=== PATIENT | female | born 1935 | race Caucasian/White ===

== ENCOUNTER 2023-07-23 12:14 | Emergency (ER) | payer MEDICARE, OTHER ==
[~2023-07-23] VITALS: Ht 149.9 cm; Wt 64.0 kg
[~2023-07-23 12:14] MED LIST: ACETAMINOPHEN325 M1 PO; ALBUTEROL SULF8.5 GM INH; AMARYL4 MG PO; ASPIR 8181 MG PO; ASPIR-LOW81 MG PO; CITALOPRAM HBR20 MG PO; COUMADIN2.5 MG PO; DIGOXIN125 MCG PO; DIGOXIN250 MCG PO; GABAPENTIN100 MG PO; GLUCOPHAGE500 MG PO; HYDROCHLOROTHIA25 MG PO; LISINOPRIL10 MG PO; METFORMIN HCL500 MG PO; PANTOPRAZOLE SO40 MG PO; SIMVASTATIN20 MG PO; SPIRIVA18 MCG INH; SYMBICORT 16010.2 GM INH; TRAMADOL HCL50 MG PO; VENTOLIN HFA18 GM INH; WARFARIN SODIU2.5 MG PO; WOMEN'S ONE DA1 EACH PO
[2023-07-23] MEDS ORDERED: METOPROLOL SUC100 MG PO (12:36)
[2023-07-23] MEDS ORDERED: ALBUTEROL2.5 MG/3 M INH (12:36)
[2023-07-23] MEDS ORDERED: PANTOPRAZOLE SO40 MG PO (12:39)
[2023-07-23] MEDS ORDERED: ATORVASTATIN CA20 MG PO (12:39)
[2023-07-23 13:11] LABS: INFLUENZA B NAA NEGATIVE (NEGATIVE); RESPIRATORY SYNCYTIAL VIR NAA POSITIVE (NEGATIVE)
[2023-07-23] MEDS ORDERED: PREDNISONE20 MG PO (14:31)
[2023-07-23] MEDS ORDERED: CEFDINIR300 MG PO (14:31)
[2023-07-23 14:47] VITALS: BP 143/70
[2023-07-27] MEDS ORDERED: SPIRIVA18 MCG INH (08:51)
== END 2023-07-23 14:47 | disposition home or self-care (01) ==
LOC: ED 12:14
PROVIDERS: Emergency Medicine
DX: J12.1 Respiratory syncytial virus pneumonia (principal); J44.9 Chronic obstructive pulmonary disease, unspecified; E11.9 Type 2 diabetes mellitus without complications; I10 Essential (primary) hypertension; Z87.891 Personal history of nicotine dependence; Z88.0 Allergy status to penicillin; Z88.6 Allergy status to analgesic agent; Z88.8 Allergy status to other drugs, medicaments and biological substances; Z79.899 Other long term (current) drug therapy; Z20.822 Contact with and (suspected) exposure to COVID-19
CPT/HCPCS: 71045; 87502; 99284-25; C9803; J7512; U0002

== ENCOUNTER 2023-07-24 23:02 | Emergency (ER) | payer MEDICARE, OTHER ==
[~2023-07-24] VITALS: Ht 149.9 cm; Wt 62.9 kg
[~2023-07-24 23:02] MED LIST changes: +ALBUTEROL2.5 MG/3 M INH; +ATORVASTATIN CA20 MG PO; +CEFDINIR300 MG PO; +METOPROLOL SUC100 MG PO; +PREDNISONE20 MG PO
--- OUTSIDE RECORDS SUMMARY | 2023-07-24 23:11 | XMS ---
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 EGarett VISIT COUNT (12 MO.) 3 [facility] Lyndsey Armijo (Srvaan Hinson[address] TOTAL 5 NOTE: Visits indicate total known visits. ED/UCC VISIT TRACKING (12 MO.) 07/24/2023 23:03 [facility] [place] TYPE: Emergency COMPLAINT: - SOB 07/23/2023 12:15 [facility] [place] TYPE: Emergency COMPLAINT: - POSSIBLE BRONCHITIS DIAGNOSES: - Allergy status to analgesic agent - Allergy status to other drugs, medicaments and biological substances - Allergy status to penicillin - Chronic obstructive pulmonary disease, unspecified - Contact with and (suspected) exposure to COVID-19 - Cough, unspecified - Essential (primary) hypertension - Other halfway (current) drug therapy - Personal history of nicotine dependence - Respiratory syncytial virus pneumonia - Type 2 diabetes mellitus without complications 04/11/2023 12:59 [facility] [place] (Sravan Hinson) TYPE: Emergency DIAGNOSES: - Constipation, unspecified - Fecal impaction - Permanent atrial fibrillation - constipation 04/01/2023 08:54 [facility] [place] (Sravan Hnison) TYPE: Emergency DIAGNOSES: - Pleural effusion, not elsewhere classified - Pneumonia, unspecified organism - Shortness of breath - Unspecified atrial fibrillation - med refill, sob poss needs breathing treatment - Shortness of Breath 09/17/2022 18:27 [facility] [place] (Sravan Hinson) TYPE: Emergency DIAGNOSES: - Weakness - high vitals - high vitals, post op yesterday - Nausea INPATIENT VISIT TRACKING (12 MO.) [facility]23 08[facility]an [facility] TYPE: Medical Surgical DIAGNOSES: - Achalasia of cardia - Atherosclerotic heart disease of [place] coronary artery without angina pectoris - Chronic obstructive pulmonary disease, unspecified - Dysphagia, unspecified - Hypomagnesemia - Obstructive sleep apnea (adult) (pediatric) - Other dysphagia - Other malaise - Other ventricular tachycardia - Personal history of other endocrine, nutritional and metabolic disease - Pleural effusion, not elsewhere classified - Pneumonia, unspecified organism - Pneumonitis due to inhalation of food and vomit - Shortness of breath - Unspecified asthma, uncomplicated - Unspecified atrial fibrillation [email or web address]
[2023-07-24 23:55] LABS: BASOPHILS 0.4 % (0-2); EOSINOPHILS 0.1 % (0-6); HEMATOCRIT 36.4 % (35.0-50.0); HEMOGLOBIN 11.9 g/dL (12.0-18.0); LYMPHOCYTES 5.4 % (24-44); MCH 28.8 (27-36); MCHC 32.8 g/dl (30-36); MCV 87.8 fl (81-99); MONOCYTES 9.8 % (0-12); NEUTROPHILS 84.3 % (39-80); PLATELET COUNT 121 K/uL (140-440); RBC 4.14 M/ul (4.3-5.7); RDW 14.3 (10.5-15.0)
[2023-07-25 00:15] LABS: ALBUMIN 3.5 g/dL (3.4-5.0); ALBUMIN/GLOBULIN RATIO 0.83 (1.1-2.4); ANION GAP 15.8 (7-21); BILIRUBIN, TOTAL 1.2 ng/dL (0.2-1.0); BUN/CREATININE RATIO 25.22 (6.0-28.6); CREATININE, SERUM 1.11 mg/dL (0.55-1.02); MAGNESIUM 1.8 mg/dL (1.8-2.4); POTASSIUM 4.8 mmol/L (3.5-5.1); PROTEIN, TOTAL 7.7 g/dL (6.4-8.2)
[2023-07-25] MEDS ORDERED: IPRAT-ALBUT 0.5-3 ML INH (01:27)
[2023-07-25 01:56] VITALS: BP 144/89
--- NOTE | 2023-07-25 20:34 | EKG ---
[facility] [address] [facility] [place] [address] Signed Accelerated Junctional rhythm Left axis deviation ST \T\ T wave abnormality, consider lateral ischemia Abnormal ECG When compared with ECG of 17-MAY-2016 09:00, Junctional rhythm has replaced Sinus rhythm Confirmed by Asad Melara MD () on 07/25/2023 8:34:12 PM Electronically Signed By: ASAD MELARA MD 07/25/232033 PATIENT NAME: CONNIE DARNELL Electrocardiogram DATE OF : 39 PHYSICIAN: ASAD MELARA MD REPORT #: [id number] REPORT IS CONFIDENTIAL AND NOT TO BE RELEASED WITHOUT AUTHORIZATION
[2023-07-27] MEDS ORDERED: SPIRIVA18 MCG INH (08:51)
== END 2023-07-25 02:18 | disposition home or self-care (01) ==
LOC: ED 23:02
PROVIDERS: Internal Medicine
DX: J44.1 Chronic obstructive pulmonary disease with (acute) exacerbation (principal); I11.0 Hypertensive heart disease with heart failure; I50.9 Heart failure, unspecified; B97.4 Respiratory syncytial virus as the cause of diseases classified elsewhere; E11.9 Type 2 diabetes mellitus without complications; Z87.891 Personal history of nicotine dependence; Z88.0 Allergy status to penicillin; Z88.6 Allergy status to analgesic agent; Z88.8 Allergy status to other drugs, medicaments and biological substances; Z79.899 Other long term (current) drug therapy
CPT/HCPCS: 36415; 71046; 80053; 83735; 83880; 84484; 85025; 93005; 93010; 94640; 96374; 96375; 99285-25; J1940; J2930

== ENCOUNTER 2023-07-26 11:02 | Inpatient (IN) | payer MEDICARE, OTHER ==
[~2023-07-26] VITALS: Ht 149.9 cm; Wt 58.4 kg
[2023-07-26] VITALS (10 sets, daily range): BP systolic 105–154; BP diastolic 65–103
[~2023-07-26 11:02] MED LIST changes: +IPRAT-ALBUT 0.5-3 ML INH
--- OUTSIDE RECORDS SUMMARY | 2023-07-26 11:10 | XMS ---
PreManage Notification: CONNIE DARNELL Security Molded Candles Wicker Events No recent Security Events currently on file CRITERIA MET - [facility] - 2 Visits in 30 Days CARE PROVIDERS Tami Fuller Medical Auditor/Motion Picture Narrator 06/15/2023-Current PHONE: [phone] KALE HINSON [facility] Current MEDICAL GROUP INTERNAL MEDICINE-SRAVAN PHONE: Unknown Karyn has no Care Guidelines for this patient. EGarett VISIT COUNT (12 MO.) [address] [place] [address] [facility] (Sravan Hinson) TOTAL 6 NOTE: Visits indicate total known visits. ED/UCC VISIT TRACKING (12 MO.) 07/26/2023 11:03 [facility] [place] TYPE: Emergency COMPLAINT: - DIFFICULTY BREATHING 07/24/2023 23:03 [facility] [place] TYPE: Emergency [...] unspecified - Essential (primary) hypertension - Other terminal computer operator (current) drug therapy - Personal history of nicotine dependence - Respiratory syncytial virus pneumonia - Type 2 diabetes mellitus without complications 04/11/2023 12:59 [facility] Sravan PEDERSON ([place]) TYPE: Emergency DIAGNOSES: - Constipation, unspecified - Fecal impaction - Permanent atrial fibrillation - constipation 04/01/2023 08:54 [facility] Sravan PEDERSON ([place]) TYPE: Emergency DIAGNOSES: - Pleural effusion, not elsewhere classified - Pneumonia, unspecified organism - Shortness of breath - Unspecified atrial fibrillation - med refill, sob poss needs breathing treatment - Shortness of Breath 09/17/2022 18:27 [facility] Sravan PEDERSON ([place]) TYPE: Emergency DIAGNOSES: - Weakness - high vitals - high vitals, post op yesterday - Nausea INPATIENT VISIT TRACKING (12 MO.) 04[facility]23 08[facility] TYPE: Medical Surgical DIAGNOSES: - Achalasia of cardia - Atherosclerotic heart disease of [place] coronary artery without angina pectoris - Chronic [...] Unspecified asthma, uncomplicated - Unspecified atrial fibrillation [email or web address]
[2023-07-26] MEDS ORDERED: ALBUTEROL/IPRATROPIUM 3 ML NEB INH PRN (11:15)
[2023-07-26 11:27] LABS: BASOPHILS 0.4 % (0-2); EOSINOPHILS 0.1 % (0-6); HEMATOCRIT 38.9 % (35.0-50.0); HEMOGLOBIN 13.2 g/dL (12.0-18.0); LYMPHOCYTES 3.7 % (24-44); MCH 29.5 (27-36); MCHC 33.8 g/dl (30-36); MCV 87.3 fl (81-99); MONOCYTES 9.5 % (0-12); NEUTROPHILS 86.3 % (39-80); RBC 4.45 M/ul (4.3-5.7); RDW 14.3 (10.5-15.0)
[2023-07-26 11:49] LABS: PLATELET COUNT 135 K/uL (140-440)
[2023-07-26 11:51] LABS: ALBUMIN 3.7 g/dL (3.4-5.0); ALBUMIN/GLOBULIN RATIO 0.88 (1.1-2.4); ANION GAP 14.6 (7-21); BILIRUBIN, TOTAL 1.4 ng/dL (0.2-1.0); BUN/CREATININE RATIO 26.75 (6.0-28.6); CALCIUM 10.3 mg/dL (8.5-10.1); CREATININE, SERUM 1.57 mg/dL (0.55-1.02); MAGNESIUM 1.9 mg/dL (1.8-2.4); POTASSIUM 3.6 mmol/L (3.5-5.1); PROTEIN, TOTAL 7.9 g/dL (6.4-8.2)
[2023-07-26] MEDS ORDERED: dilTIAZem HCL 30 MG TAB PO ONE (13:45)
[2023-07-26] MEDS ORDERED: dilTIAZem HCL 25 MG/5 ML VIAL IV ONE ×2 (13:45→16:00)
[2023-07-26] MEDS ORDERED: LIDOCAINE 2% VISCOUS 6 ML SYR TOP ONE ×2 (14:30→22:30)
[2023-07-26] MEDS ORDERED: ALBUTEROL/IPRATROPIUM 3 ML NEB INH ONE (15:00)
[2023-07-26] MEDS ORDERED: DILTIAZEM HCl/D5W 100 ML IV ONE (16:00)
[2023-07-26] MEDS ORDERED: methylPREDNISolone SOD SUCC 125 MG/2 ML VIAL IV ONE (16:00)
[2023-07-26] MEDS ORDERED: ACETAMINOPHEN 325 MG TAB PO PRN (16:30)
[2023-07-26] MEDS ORDERED: ondansetron HCL 4 MG/2 ML VIAL IV PRN (16:30)
--- NOTE | 2023-07-26 17:10 | NUR ---
PT ARRIVES TO UNIT VIA STRETCHER BY ED RN. NO BELONGINGS PRESENT ON ADMIT. PT AAO - REMAINS IN AFIB RYTHEM WITH RATE OF 106, DILT DRIP ON AT 7.5MG/HR. BP STABLE WITH DRIP. EXPIRATORY WHEEZE THROUGHOUT WITH SOME ACCESSORY USE WITH BREATHING, PT DENIES FEELING SOB. RR 20'S. DINNER ORDERED FOR PT. PURWIK IN PLACE FOR URGENCY/STRESS INC. ORIENTED TO ROOM AND CALL LIGHT IN REACH.
[2023-07-26] MEDS ORDERED: BENZONATATE 100 MG CAP PO PRN (18:15)
[2023-07-26] MEDS ORDERED: DEXTROSE 5% 1,000 ML IV PRN (18:15)
[2023-07-26] MEDS ORDERED: guaiFENesin 600 MG TABCR PO PRN (18:15)
[2023-07-26] MEDS ORDERED: GLUCAGON,HUMAN RECOMBINANT 1 MG/ML VIAL SUB-Q PRN (18:15)
[2023-07-26] MEDS ORDERED: IBLOOD GLUCOSE TEST STRIP 1 EA TEST XX PRN (18:15)
[2023-07-26] MEDS ORDERED: DEXTROSE 50% 50 ML SYR IV PRN ×2 (18:15)
--- NOTE | 2023-07-26 18:15 | NUR ---
PT SITTING ON EDGE OF BED TO EAT - PT REPORTS CHRONIC DYSPHAGIA AND VOMITING AFTER EATING. APPROX 200ML OF DINNER THROWN UP. PT STATES SHE HAS SEEN SPECIALISTS BEFORE WITHOUT RECOMENDATION. CONCERN FOR ASPIRATION. RT AWARE.
[2023-07-26] MEDS ORDERED: ALBUTEROL SULFATE 0.083% 3 ML VIAL INH PRN (18:30)
[2023-07-26] MEDS ORDERED: ALBUTEROL/IPRATROPIUM 3 ML NEB INH SCH (20:00)
[2023-07-26] MEDS ORDERED: BUDESONIDE 0.5 MG/2 ML VIAL INH SCH (20:00)
--- NOTE | 2023-07-26 20:01 | NUR ---
PATIENT UP TO [facility]. ATTENDS HAD MODERATE AMOUNT OF URINE NOTED AND PATIENT VOIDED TO THE C A SMALL AMOUNT. PATIENT TOELRATED TRANSFER WITH MINIMAL ASSIST. PATIENT HAS AUDIBLE COARSE BREATH SOUNDS WITH AN EXP WHEEZE NOTED. RR 20-25 AND Sp02 94-96% ON 2L NC. PATIENT REPORTS CONTINUED SMALL EPISODES OF EMESIS BUT DOES NOT FEEL NAUSEA. PATIENT STATES "IT JUST HAPPENS SOMETIMES WHEN IM COUGHING". PATIENT CONTINUES ON DILT DRIP AT 7.5 MG/HR; HR 90-100 AT REST. IV SITE WNL X2. PATIENT GOWN CHANGED AND ASSISTED PATIENT TO POSITION FOR COMFORT IN THE BED. HOB > 45 DEGREES. CALL LIGHT IN REACH. PATIENT DENIED OTHER CONCERNS AT THIS TIME.
[2023-07-26] MEDS ORDERED: IBLOOD GLUCOSE TEST STRIP 1 EA TEST VI SCH (21:00)
[2023-07-26] MEDS ORDERED: INSULIN LISPRO 100 UNIT/ML ML SUB-Q SCH (21:00)
--- NOTE | 2023-07-26 21:02 | EKG ---
[facility] [address] [facility] [place] [address] Signed Atrial fibrillation with rapid ventricular response Left axis deviation Nonspecific ST and T wave abnormality Abnormal ECG When compared with ECG of 24-JUL-2023 23:27, Atrial fibrillation is now present Confirmed by Asad Melara MD () on 07/26/2023 9:02:24 PM Electronically Signed By: ASAD MELARA MD 07/26/232101 PATIENT NAME: CONNIE DARNELL DYLAN Electrocardiogram DATE OF : 39 PHYSICIAN: ASAD MELARA MD REPORT #: [id number] REPORT IS CONFIDENTIAL AND NOT TO BE RELEASED WITHOUT AUTHORIZATION
--- NOTE | 2023-07-26 21:40 | NUR ---
PATIENT PROVIDED WITH SCHEDULED AND PRN MEDS. PATIENT IS AAOX4. RESTING COMFORTABLY IN THE BED WATCHING TV. TOLERATING 2L NC. PATIENT IS NOT SURE HER STOMACH IS WELL ENOUGH TO USE HER CPAP AT THIS TIME. PATIENT RECEIVED PRN COUGH MEDS AND HAS SOME UPPER AIRWAY CONGESTION. LUNG SOUNDS THROUGHOUT ARE COARSE. PATIENT REQUEST A PRN NEB TREATMENT, RT CALLED. PATIENT REMIANS ON CARDIZEM 7.5; HR 80-90'S AT REST; A.FIB.
--- NOTE | 2023-07-26 22:00 | NUR ---
PATIENT REPORTS SUDDEN ONSET OF SOB. RT CALLED. TITRATED TO 4L NC. Sp02 85-90%; RR 30. PATIENT BREATHING IS LABORED. RT IN ROOM FOR NEB TREATMENT AND PATIENT PLACED ON HOME CPAP. DR.HILBORN SENTHIL MD WILL COME TO SEE THE PATIENT.
[2023-07-26] MEDS ORDERED: FUROSEMIDE 40 MG/4 ML VIAL IV ONE (22:30)
--- NOTE | 2023-07-26 22:56 | NUR ---
PATIENT CONTINUES TO HAVE DIFFICULTY BREATHING. RR 30-35. Sp02 SATS DOWN TO 70% ON HOME CPAP AT 4L BLEED IN. PATIENT TITRATED TO 10L BLEED-IN. RT UPDATED. ACEVES PLACED AND LASIX GIVEN. PATIENT POSITIONED FOR COMFORT WITH HOB ELEVATED. PATIENT IS LETHARGIC AND RESPONDS TO HER NAME BUT NOT QUESTIONS. PATIENT HR 100'S; AFIB. REMAINS ON 7.5 MG/HR CARDIZEM.
[2023-07-27] VITALS (26 sets, daily range): BP systolic 98–169; BP diastolic 41–110
--- NOTE | 2023-07-27 | NUR ---
PATIENT PLACED ON FACILITY BIPAP PER RT. PATIENT TOLERATING WELL. WAKES EASILY TO VOICE. VS STABLE. RR 30-35. Sp02 > 95% ON 30% Fi02. HR CONTROLLED WITH CARDIZEM AT 7.5 MG/HR.
--- NOTE | 2023-07-27 02:00 | NUR ---
PATIENT RESTING IN BED WITH EYES CLOSED. TOLERATING BIPAP WELL. VS STABLE. GOOD URINE OUTPUT. CONTINUED CARDIZEM AT 7.5 MG/HR. IV SITE WNL.
--- NOTE | 2023-07-27 04:00 | NUR ---
PATIENT APPEARS TO BE SLEEPING SOUNDLY. RR 30-35. TOLERATING BIPAP WELL. WAKES EASILY TO VOICE. HR 90-100; AFIB. CARDIZEM CONTINUED AT 7.5 MG/HR.
[2023-07-27] MEDS ORDERED: DILTIAZEM HCl/D5W 100 ML IV ONE (05:23)
[2023-07-27 05:41] LABS: BASOPHILS 0.3 % (0-2); HEMATOCRIT 33.9 % (35.0-50.0); HEMOGLOBIN 11.5 g/dL (12.0-18.0); LYMPHOCYTES 3.4 % (24-44); MCH 29.2 (27-36); MCHC 33.9 g/dl (30-36); MCV 86.1 fl (81-99); MONOCYTES 9.7 % (0-12); NEUTROPHILS 86.6 % (39-80); PLATELET COUNT 115 K/uL (140-440); RBC 3.93 M/ul (4.3-5.7); RDW 14.1 (10.5-15.0)
--- NOTE | 2023-07-27 05:50 | NUR ---
PATIENT IS AGITATED AND CONFUSED. REFUSING LAB DRAWS AND PULLING AT MONITOR LINES. STAFF 1:1 TO MAINTAIN SAFETY. LABS WERE DRAWN WITH 3 STAFF ASSIST. DISCUSSED WITH PATIENT'S DAUGHTER; WHO CONFIRMS PATIENT HAS "MEMORY PROBLEMS" AND CAN BE MEAN WHEN SHE ISN'T FEELING WELL. UPDATE PROVIDED TO PATIENT'S DAUGHTER. DISCUSSED WITH DR. MELARA. PATIENT WILL RECEIVE 1 MG HALDOL AND BE PLACED IN SOFT RESTRAINTS NEEDED FOR MEDICAL MANAGEMENT.
[2023-07-27] MEDS ORDERED: HALOPERIDOL LACTATE 5 MG/ML VIAL IV ONE (06:00)
[2023-07-27] MEDS ORDERED: HALOPERIDOL LACTATE 5 MG/ML VIAL ONE (06:01)
[2023-07-27 06:03] LABS: ALBUMIN 3.2 g/dL (3.4-5.0); ALBUMIN/GLOBULIN RATIO 0.82 (1.1-2.4); ANION GAP 13.2 (7-21); BILIRUBIN, TOTAL 1.2 ng/dL (0.2-1.0); BUN/CREATININE RATIO 27.89 (6.0-28.6); CALCIUM 9.7 mg/dL (8.5-10.1); CREATININE, SERUM 1.47 mg/dL (0.55-1.02); MAGNESIUM 1.8 mg/dL (1.8-2.4); PHOSPHORUS, INORGANIC 4.4 mg/dL (2.5-4.9); POTASSIUM 4.2 mmol/L (3.5-5.1); PROTEIN, TOTAL 7.1 g/dL (6.4-8.2)
--- NOTE | 2023-07-27 06:27 | NUR ---
MULTIPLE ATTEMPTS BY STAFF MADE TO REASON WITH PATIENT AND REORIENT HER. PATIENT IS AGITATED BY STAFF AND REFUSES TO BELEIVE SHE IS IN THE HOSPITAL. PATIENT CONTINUES TO PULL AT MONITOR LINES AND IV SITES WHEN RESTRAINTS ARE NOT IN PLACE. CONTINUE TO MONITOR CLOSELY.
[2023-07-27] MEDS ORDERED: DILTIAZEM HCl/D5W 100 ML IV SCH (06:30)
[2023-07-27] MEDS ORDERED: predniSONE 20 MG TAB PO SCH (08:00)
--- NOTE | 2023-07-27 08:05 | NUR ---
RN IN ROOM TO ASSESS PT - PT WAKES EASILY WHEN SPOKEN TO. REMAINS DISORIENTED TO ALL BUT SELF/NAME. PT FRUSTRATED BY RESTRAINTS, PICKING AT THEM. REMOVED WITH DIRECT OBSERVATION FOR LINE SAFETY. AUDIBLE WHEEZING FROM BEDSIDE, REMAINS ON 2L NC, RR 20. DILT DRIP REMAINS AT 5MG/HR INTO RIGHT AC IV SITE. SITE WNL. HR BELOW 100, BP STABLE. BED ALARM ON.
[2023-07-27] MEDS ORDERED: ENOXAPARIN SODIUM 30 MG/0.3 ML SYR SUB-Q SCH (09:00)
--- NOTE | 2023-07-27 09:12 | NUR ---
PT REPOSISTIONED TO SIDE OF BED TO EAT BREAKFAST. DYSPHAGIA AND EMESIS AFTER 1 BITE OF EGG AND SIPS OF WATER TO SWALLOW ORAL PREDNISONE. PT NOTED TO HAVE EXCESSIVE BURPING AFTER SIPS OF WATER. CONTINUED CONCERN FOR ASPIRATION. FOOD AND DRINK REMOVED UNTIL FURTHER DISCUSSION WITH MD. DILT GTT INCREASED TO 7.5MG/HR , HR ELEVATED TO 110'S WITH ACTIVITY.
[2023-07-27] MEDS ORDERED: FUROSEMIDE 40 MG/4 ML VIAL IV SCH (09:27)
--- NOTE | 2023-07-27 10:58 | NUR ---
PT REMAINS SOB WITH AUDIBLE WHEEZING AT BEDSIDE. IV LASIX ADMINISTERED. RR 29, SP02 98% ON 2L. DILT DRIP TITRATED TO 10MG/HR. RT CALLED FOR NEB TX.
[2023-07-27] MEDS ORDERED: methylPREDNISolone SOD SUCC 40 MG/ML VIAL IV SCH (11:15)
[2023-07-27] MEDS ORDERED: GABAPENTIN100 MG PO (11:36)
[2023-07-27] MEDS ORDERED: ELIQUIS2.5 MG PO (11:37)
--- NOTE | 2023-07-27 11:37 | NUR ---
MED REC COMPLETE
--- NOTE | 2023-07-27 11:44 | NUR ---
FOLLOWING CHART REVIEW AND DISCUSSION WITH NURSING, RECOMMENDATION FOR SWALLOW EVALUATION VIA MODIFIED BARIUM SWALLOW STUDY IS WARRANTED.
--- NOTE | 2023-07-27 11:58 | NUR ---
PATIENT ALERT IN ROOM. PERIODS OF CONFUSION NOTED PER Lisa FAN RN. ASSESSMENT COMPLETED WITH PATIENT. ADAMS, DAUGHTER, CALLED TO CLARIFY INFORMATION. PATIENT LIVES WITH DAUGHTER, ADAMS, IN A SINGLE LEVEL HOME WITH NO STAIRS. PATIENT HAS A WALKER, 2 CANES AND A WHEELCHAIR AT HOME. DAUGHTER STATES SHE PROVIDES TRANSPORTATION FOR PATIENT WHEN NEEDED. DAUGHTER ASSISTS WITH MEAL PREP, HISTORY FACULTY MEMBER, ETC. ADAMS DENIES ANY FINANCIAL HARDSHIP. STATES SHE FEELS SHE IS ABLE TO CONTINUE CARING FOR PATIENT WITHOUT DIFFICULTY. WOULD LIKE ASSISTANCE TO GET SHOWER CHAIR. INFORMED HER THEY MAY BE AVAILABLE AT [facility], [facility]. DISCUSSED INSURANCE COVERAGE OF EQUIPMENT DOES NOT INCLUDE SHOWER CHAIRS. VERBALIZES UNDERSTANDING. DENIES NEEDS. INSTRUCTED IF NEEDS ARISE, PLEASE NOTIFY STAFF.
[2023-07-27] MEDS ORDERED: PHARMACY RENAL DOSE ADJUSTMENT 1 DOSE MISC PO SCH (12:00)
[2023-07-27] MEDS ORDERED: CEFTRIAXONE/SODIUM CHLORIDE 2 GM/100 ML PIGGYBACK IV SCH (12:16)
--- NOTE | 2023-07-27 12:30 | NUR ---
PTS WORK OF BREATHING NOTED TO BE INCREASING. LUNG SOUNDS TIGHTER THROUGHOUT, RR VARIABLE AND 02 DEMAND NOT INCREASING TO SUSTAIN RATES. HR INCREASING WELL, DILT DRIP INCREASED TO 12.5MG/HR. RT NOTIFIED, PLACED ON BIPAP. URINE OUTPUT POST LASIX DOSE 40ML OF TEA COLORED URINE FROM YOLA CATH. UPDATED.
[2023-07-27] MEDS ORDERED: SODIUM CHLORIDE 0.9% 1,000 ML IV SCH (13:15)
--- NOTE | 2023-07-27 13:23 | NUR ---
PT RESTING WITH DECREASED WORK OF BREATHING WITH BIPAP ON - 250ML NS BOLUS STARTED.
--- NOTE | 2023-07-27 13:42 | NUR ---
UR NOTE MCG ATRIAL FIBRILLATION (ISC) 07/26/23 MET CLINICAL INDICATIONS FOR ADMISSION TO INPATIENT CARE GL DAY 1
--- NOTE | 2023-07-27 14:15 | NUR ---
ECHO IN PROGRESS
--- NOTE | 2023-07-27 14:52 | NUR ---
PATIENT AWAKE IN BED, VITALS CHARTED. PATIENT WORK OF BREATHING HAS INCREASED, RN NOTIFIED.
--- NOTE | 2023-07-27 15:45 | NUR ---
PT BACK TO ROOM - VOMITING BARIUM CONTENTS. ASSISTED WITH SUCTION - PT STATES SHE IS "TOO TIRED TO COUGH" AND "MY THROAT JUST WONT STAY OPEN". RR REMAINS ELEVATED IN 30'S WITH AUDIBLE WHEEZING AND INCREASED WORK OF BREATHING. PT APPEARS FATIGUED FROM WORK OF BREATHING. MD AT BEDSIDE TO TALK TO DAUGHTER. PT STATES SHE WISHES TO REMAIN FULL CODE AND INTUABTION IF NECESSARY. ORAL SUCTION AND NEB TX ADMINISTERED BY RT.
--- NOTE | 2023-07-27 15:45 | NUR ---
PT OFF FLOOR TO IMAGING FOR CXR AND MODIFIED BARIUM STUDY WITH THIS RN - STUDY COMPLETED WITH CONSIDERABLE STRAIN ON PT ENERGY - WORK OF BREATHING INCREASING , RR 30'S, 02 DEMAND NOT INCREASING REMAINS ON 2L NC.
--- NOTE | 2023-07-27 16:15 | NUR ---
PT PLACED ON BIPAP AFTER ORAL SUCTIONING AND NEB TX - PT WITHOUT VOMITING EPISODES FOR APPROX 20 MIN, NO LONGER SPITTING UP BARIUM. RISKS RELATED TO BIPAP AT THIS TIME DISCUSSED AT LENGTH WITH RT AND MD - PT NEEDING REST FROM WORK OF BREATHING AT THIS TIME. RN AT BEDSIDE.
--- NOTE | 2023-07-27 16:35 | NUR ---
NOTIFIED OF CURRENT DILT RATE
--- NOTE | 2023-07-27 17:16 | NUR ---
PT RESTING IN BED ON BIPAP WITH IMPROVED RR OF 20 - APPEARS COMFORTABLE. HOB AT 45 DEGREES. GTT UP TO 20MG/HR AND HR REMAINS ELEVATED AT 110'S. SECOND 250ML BOLUS COMPLETE.
--- NOTE | 2023-07-27 17:18 | NUR ---
RN REMAINS AT BEDSIDE.
--- NOTE | 2023-07-27 19:45 | NUR ---
SHIFT REPORT RECEIVED. PATIENT RESTING IN BED WITH BIPAP IN PLACE. ASSISTED PATIENT TO REPOSITION BIPAP MASK FOR COMFORT. PATIENT'S FAMILY AT BEDSIDE. PATIENT VS STABLE. RT IN FOR NEB TREATMENT AND BIPAP CHECK. FAMILY AND PATIENT DENIED NEEDS.
--- NOTE | 2023-07-27 20:15 | NUR ---
PATIENT OFF BIPAP TO 2L NC. PATIENT IS AAOX4. ORAL CARE DONE. PATIENT VISITING WITH HER FAMILY. PATIENT'S BREATHING IS SLIGHTLY LABORED, LUNG SOUNDS ARE COARSE AND TIGHT. PATIENT REPORTS FEELING SOB AND "TIRED OF BREATHING". PATIENT PLACED BACK ON BIPAP AFTER ABOUT 15 MINS. PATIENT REPOSITIONED IN BED. HOB ELEVATED. ACEVES CARE DONE. IV SITES WNL X2. CARDIZEM TITRATED FROM 20 MG/HR TO 10 MG/HR. HR 95-110; AFIB. PATIENT DENIED FEELING NAUSEOUS. INSTRUCTIONS PROVIDED TO PATIENT FOR REMOVING MASK, PATIENT DEMONSTRATED THAT SHE COULD UNCLIP AND REMOVE MASK. FAMILY REMAINS AT BEDSIDE. CALL LIGHT IN REACH.
--- NOTE | 2023-07-27 22:15 | NUR ---
ACCU CHECK DONE, SSI PER ORDER. PATIENT WAKES EASILY TO VOICE. RASS -1. PATIENT DENIED NEEDS OR CONCERNS. VS STABLE. TOLERATING BIPAP.
[2023-07-28] VITALS (20 sets, daily range): BP systolic 93–160; BP diastolic 45–115
--- NOTE | 2023-07-28 00:10 | NUR ---
PATIENT PULLING AT MASK AND REPORTS BEING UNCOMFORTABLE TO HER DAUGHTER. PATIENT TAKEN OFF BIPAP AND PLACED ON 2L NC. PATIENT REPOSITIONED IN BED. IV SITE IN RIGHT AC DC'd DUE TO LEAKING. PATIENT APPEARS CONFUSED BUT DOES NOT ANSWER QUESTIONS. PATIENT IS CALM AND ALLOWS FOR CARES TO BE DONE. PATIENT PLACED BACK ON BIPAP AND RT IN ROOM FOR NEB TREATMENT. FAMILY AT BEDSIDE.
--- NOTE | 2023-07-28 00:27 | NUR ---
PATIENT CONTINUES TO PULL AT HER MASK OCCATIONALLY. STAFF AND PATIENT'S DAUGHTER ENCOURAGE PATIENT TO REST. HR 110-120; CARDIZEM AT 10 MG/HR.
--- NOTE | 2023-07-28 02:15 | NUR ---
PATIENT HAS BEEN RESTING ON BIPAP AND APPEARS COMFORTABLE. EYES CLOSED. VS STABLE.
--- NOTE | 2023-07-28 04:44 | NUR ---
PATIENT REMOVED HER BIPAP MASK. REQUESTED A BREAK FROM IT. 2L NC IN PLACE. PATIENT COUGHING. ASSISTED PATIENT IN ORAL SUCTION OF THICK SECREATIONS. PATIENT IS ORIENTED TO SELF AND HER DAUGHTER, EASILY REORIENTED TO SURROUNDINGS. PATIENT BREATHING IS LABORED. RR 30'S. DAUGHTER AT BEDSIDE. PATIENT REPOSITIONED IN BED. HOB ELEVATED.
--- NOTE | 2023-07-28 05:20 | NUR ---
PATIENT REPORTING INCREASE SOB. PATIENT ON BIPAP. HAVING THICK SPUTUM PRODUCTION, ABLE TO CLEAR WITH SOME ASSIST REMOVING MASK. RT CALLED FOR NEB TREATMENT. PATIENT TIGHT THORUGHOUT. Sp02 >90% ON 30% Fi02. HR 115-130; CARDIZEM INCREASED TO 20 MG/HR.
[2023-07-28 05:45] LABS: BASOPHILS 0.2 % (0-2); HEMATOCRIT 36.8 % (35.0-50.0); HEMOGLOBIN 12.3 g/dL (12.0-18.0); LYMPHOCYTES 3.7 % (24-44); MCH 29.3 (27-36); MCHC 33.5 g/dl (30-36); MCV 87.7 fl (81-99); MONOCYTES 4.8 % (0-12); NEUTROPHILS 91.3 % (39-80); PLATELET COUNT 151 K/uL (140-440); RDW 14.2 (10.5-15.0)
[2023-07-28 06:07] LABS: ALBUMIN 3.6 g/dL (3.4-5.0); ALBUMIN/GLOBULIN RATIO 0.84 (1.1-2.4); ANION GAP 13.4 (7-21); BILIRUBIN, TOTAL 0.9 ng/dL (0.2-1.0); BUN/CREATININE RATIO 26.9 (6.0-28.6); CREATININE, SERUM 1.97 mg/dL (0.55-1.02); POTASSIUM 3.4 mmol/L (3.5-5.1); PROTEIN, TOTAL 7.9 g/dL (6.4-8.2)
--- NOTE | 2023-07-28 06:31 | NUR ---
UPDATE PROVIDED TO . ORDERS RECEIVED FOR IV FLUIDS TO RESTART. MORPHINE ONCE FOR SOB. CHANGING SCHEDULED NEBS TO ZOPENEX DUE TO INCREASED HR. SEE EMAR FOR ORDERS.
[2023-07-28] MEDS ORDERED: SODIUM CHLORIDE 0.9% 1,000 ML IV SCH (06:45)
[2023-07-28] MEDS ORDERED: MORPHINE SULFATE 4 MG/ML VIAL IV ONE (06:45)
[2023-07-28] MEDS ORDERED: levalbuterol HCL 1.25 MG/0.5 ML VIAL INH PRN (06:45)
--- NOTE | 2023-07-28 07:28 | NUR ---
PATIENT APPEARS CALM AND MORE CONTENT IN BED. BIPAP IN PLACE. RR DOWN TO 22 FROM THE 35-40'S. Sp02 99% ON 30% Fi02. HR 95-110. DAUGHTER AT BEDSIDE.
[2023-07-28] MEDS ORDERED: levalbuterol HCL 1.25 MG/0.5 ML VIAL INH SCH (08:00)
[2023-07-28] MEDS ORDERED: IPRATROPIUM BROMIDE 2.5 ML VIAL INH SCH (08:00)
--- NOTE | 2023-07-28 08:00 | NUR ---
PT RESTING IN BED ON BIPAP, AWAKE. DENIES NEEDS AT THIS TIME. DILT DRIP REMAINS AT 20MG/HR.
[2023-07-28] MEDS ORDERED: POTASSIUM CHLORIDE 40 MEQ,LIDOCAINE HCL 1% 40 MG in DEXTROSE 5% 500 ML IV ONE (08:15)
[2023-07-28] MEDS ORDERED: METOPROLOL TARTRATE 5 MG/5 ML VIAL IV SCH (08:15)
--- NOTE | 2023-07-28 09:25 | NUR ---
PT PLACED BACK ON BIPAP AFTER 30 MIN BREAK TO PREFORM ORAL CARE, BED BATH AND LINEN CHANGE. PT MAINTAINS SP02 ON 2L NC BUT RR INCREASES TO 30'S AFTER 30 MINS OFF. PT ORIENTED X3. DAUGHTER UPDATED ON POC.
[2023-07-28] MEDS ORDERED: MORPHINE SULFATE 4 MG/ML VIAL IV PRN (09:30)
--- NOTE | 2023-07-28 10:30 | NUR ---
PT RESTING IN BED WITH HOB 40 DEGREES, BIPAP IN PLACE. RR 15, HR DECREASING TO SUSTAINED RATES IN 80-90S. WORK OF BREATHING AND ACCESSORY USE IMPROVED WHEN ON BIPAP.
--- NOTE | 2023-07-28 11:32 | NUR ---
STOPPED BY PATIENT'S ROOM TO DISCUSS TO PATIENT'S DC PLAN. PATIENT IS GETTING A NEB TREATMENT. CASE MANGER WILL RETURN AFTER TREATMENT.
--- NOTE | 2023-07-28 12:42 | NUR ---
PT RESTING IN BED IN HIGH HOB POSISTION WITH 2LNC IN PLACE. PT TAKEN OFF BIPAP PER REQUEST. INCREASED COUGHING WITH SOME PRODUCTION. HR REMAINS UNDER 100BPM WITH DILT DRIP AT 10MG/HR AFTER LOPRESSOR DOSE.
--- NOTE | 2023-07-28 13:55 | NUR ---
1MG IV ATIVAN ADMINISTERED FOR INCREASING FEELING OF SOB WITH BIPAP ON - PT BECOMING INCREASINGLY INTOLERABLE OF BIPAP, RESTLESS IN BED, BUT UNABLE TO SUSTAIN WORK OF BREATHING WITHOUT BIPAP. UPDATED ON POOR URINE OUTPUT - ORDER RECEIVED AND ENTERED FOR INCREASE IVF TO 100ML/HR
--- NOTE | 2023-07-28 15:15 | NUR ---
IN ROOM ROUNDING - POC DISCUSSED. ALL QUESTIONS ANSWERED. PT REMAINS ON BIPAP PRIMARILY WITH SMALL BREAKS FOR ORAL CARE. PT STATES SOB DID NOT IMPROVE WITH IV MORPHINE. DILT DRIP REMAINS AT 10MG/HR - HR 80'S-90'S. TIGHT WHEEZE THROUGHOUT NOT IMPROVED. DAUGHTER UPDATED ON POC, STATES UNDERSTANDING.
--- NOTE | 2023-07-28 16:28 | NUR ---
ST treatment withheld due to patient's dependence on bipap and inability to tolerate feeding at this time. Discussed with NSG and is in agreement.
[2023-07-28 16:43] LABS: ANION GAP 14.1 (7-21); BUN/CREATININE RATIO 27.48 (6.0-28.6); CALCIUM 9.7 mg/dL (8.5-10.1); CREATININE, SERUM 2.11 mg/dL (0.55-1.02); POTASSIUM 4.1 mmol/L (3.5-5.1)
[2023-07-28] MEDS ORDERED: SODIUM CHLORIDE 0.9% 500 ML IV PRN (17:00)
--- NOTE | 2023-07-28 17:00 | NUR ---
MD NOTIFIED OF CONTINUED LOW URINE OUTPUT - STAT BMP ORDERED. RESULTS CALLED TO MD - ORDER RECEIVED FOR 500ML BOLUS ONCE. STARTED.
--- NOTE | 2023-07-28 18:38 | NUR ---
NS BOLUS COMPLETE. URINE OUTPUT 75ML, REMAINS TEA COLORED CONCENTRATION. PT PLACED BACK ON BIPAP FOR REST. REPOSISTIONED IN BED. MINIMAL CHANGE IN LUNG SOUNDS AND WOB.
[2023-07-28] MEDS ORDERED: INSULIN LISPRO 100 UNIT/ML ML SUB-Q SCH (20:00)
[2023-07-28] MEDS ORDERED: IBLOOD GLUCOSE TEST STRIP 1 EA TEST VI SCH (20:00)
--- NOTE | 2023-07-28 20:21 | NUR ---
DR HENDERSON ROUNDING ON PT, PLAN DISCUSSED, UPDATED ON CURRENT STATUS, URINE OUTPUT AND VS. ORDER GIVEN TO GIVE ANOTHER 500ML NS BOLUS NOW.
[2023-07-28] MEDS ORDERED: SODIUM CHLORIDE 0.9% 500 ML IV SCH (20:30)
--- NOTE | 2023-07-28 22:00 | NUR ---
URINE OUTPUT HAS INCREASED, 48ML OVER THE LAST 2 HOURS. PT REMAINS IN BED, WEARING BIPAP, SPO2 99-100%, RR 18, HR 90'S AFIB.
--- NOTE | 2023-07-28 22:05 | NUR ---
DR HENDERSON IN UNIT, UPDATED ON URINE OUTPUT, ORDER FOR ANOTHER 500ML NS BOLUS GIVEN, BOLUS STARTED.
[2023-07-29] VITALS (20 sets, daily range): BP systolic 123–168; BP diastolic 75–127
--- NOTE | 2023-07-29 00:59 | NUR ---
PT CONT TO REST WEARING THE BIPAP WITH SPO2 100%, RR 19, URINE OUTPUT HAS BEEN MAINTAINING 20ML/HR SINCE THE LAST BOLUS WAS COMPLETED.
--- NOTE | 2023-07-29 02:44 | NUR ---
IN TO DO BLOOD SUGAR AND LOPRESSOR, PT IS REMOVING BIPAP MASK, STATES "ITS TOO HOT", RT CALLED, TEMP TURNED DOWN ON BIPAP HEATER. PT REPOSIITONED. URINE OUTPUT MAINTAINING.
--- NOTE | 2023-07-29 05:45 | NUR ---
PT PULLING AT BIPAP, BIPAP REMOVED AND PT PLACED ON 3L/NC. SPO2 MAINTAINING AT 100%, RR INCREASED TO 24, PT DOES LOOK A BIT MORE LABORED OFF OF BIPAP.
[2023-07-29 06:15] LABS: BASOPHILS 0.1 % (0-2); HEMATOCRIT 33.7 % (35.0-50.0); HEMOGLOBIN 11.6 g/dL (12.0-18.0); LYMPHOCYTES 4.8 % (24-44); MCH 33.5 (27-36); MCHC 34.4 g/dl (30-36); MCV 97.4 fl (81-99); NEUTROPHILS 87.1 % (39-80); PLATELET COUNT 136 K/uL (140-440); RBC 3.46 M/ul (4.3-5.7); RDW 14.4 (10.5-15.0)
[2023-07-29 06:30] LABS: ANION GAP 14.2 (7-21); BUN/CREATININE RATIO 32.97 (6.0-28.6); CALCIUM 9.3 mg/dL (8.5-10.1); CREATININE, SERUM 1.85 mg/dL (0.55-1.02); POTASSIUM 4.2 mmol/L (3.5-5.1)
--- NOTE | 2023-07-29 06:44 | NUR ---
DR HENDERSON UPDATED ON PT STATUS, NEW ORDER FOR IVF BOLUS, MD IN ROOM TO SEE PT.
[2023-07-29] MEDS ORDERED: SODIUM CHLORIDE 0.9% 500 ML IV SCH (06:45)
--- NOTE | 2023-07-29 09:55 | NUR ---
PER MD IN AM MULTI-DISIPLINARY TEAM MEETING MD ORDERED A CHEST CT D/T CONTINUED SOB AND BIPAP DEPENDENCE. VERIFIED WITH MD THAT PATIENT HAS HAD NO BM SINCE ADMISSION, VOMITING, AND FAILED BARIUM SWALLOW EVAL. PER MD DO A CHEST, ABD, AND PELVIS CT FOR FOLLOW-UP. PATIENT IS NOTED TO HAVE GOOD BOWEL TONES.
--- NOTE | 2023-07-29 10:29 | NUR ---
PATIENT TAKEN DOWN FOR CT SCAN OF CHEST/ABD/PELVIS AROUND 1005. PT TAKEN ON 3 L NC AND TOLERATED THIS WELL. PT HAS AUDIBLE EXP WHEEZING WHEN OFF HOMERO BIPAP, AND INCREASED WORK OF BREATHING. PT WAS ABLE TO STAY OFF THE MASK UNTIL JUST NOW HOWEVER, WHEN SHE ENDORSES SOB AGAIN AND AGREED TO BE BACK ON BIPAP. SP02 IS 100%. WILL CONTINUE TO MONITOR. PT'S DAUGHTER HAS LEFT FOR A WHILE BUT STATES SHEWILL RETURN LATER.
--- NOTE | 2023-07-29 11:28 | NUR ---
DILT GTT NOW ON STANDBY. HR HAS BEEN WELL CONTROLLED, IN THE 80-90s.
--- NOTE | 2023-07-29 12:30 | NUR ---
PATIENT REMAINS ON BIPAP 14/6 AND 30%. PT TOLERATING THIS WELL. PT REMAINS NPO AT THIS TIME. PT HAS HAD A COUPLE OF EPISODES OF COUGHING WITH SPUTUM PRODUCTION, WHICH WAS THICK AND WHITE, AND LOOKS SIMILAR TO THE BARRIUM SWALLOW MATERIAL USED. CT SCAN RESULTS ARE BACK AND IN EHR. PT HAS NOW BEEN OFF DILT GTT SINCE AROUND 1115 AND HR IS MAINTAINING UNDER 100 MOSTLY. ASSESSMENT COMPLETE FOR NOON.
[2023-07-29] MEDS ORDERED: ALBUTEROL SULFATE 0.083% 3 ML VIAL INH PRN (12:45)
[2023-07-29] MEDS ORDERED: METOCLOPRAMIDE HCL 10 MG/2 ML SDV IV SCH (14:00)
--- NOTE | 2023-07-29 14:53 | NUR ---
PATIENT TAKEN OFF BIPAP AND PLACED ON 2 L NC. PT STILL AUDIBLY WHEEZING WHEN OFF BIPAP, BUT STATES SHE IS BREATHING OKAY AND WANTS TO KEEP MASK OFF FOR A WHILE. PT STATES SHE FEELS LIKE SHE HAS HAD THIS WHEEZE FOR A COUPLE OF WEEKS. SP02 IS 98-99%. PT REMAINS IN AFIB, BUT OFF DILT GTT. IV 1400 MEDS GIVEN (SEE EMAR). PT'S DAUGHTER HAS JUST RETURNED AND IS NOW VISITING WITH HER. INSTRUCTED PATIENT TO USE CALL LIGHT WHEN SHE FEELS LIKE SHE NEEDS TO BE PUT BACK ON BIPAP.
[2023-07-29] MEDS ORDERED: ALBUTEROL/IPRATROPIUM 3 ML NEB INH SCH (16:00)
--- NOTE | 2023-07-29 16:41 | NUR ---
PATIENT USES CALL LIGHT AND STATES, "I'M NOT FEELING BETTER YET." PATIENT EXPALINED THAT SHE WAS HOPING TO FEEL BETTER AFTER WEARING THE VAPOTHERM FOR A SHORT TIME, WHICH SHE IS STILL FEELING SHORT OF BREATH. PT WANTING TO WEAR THE BIPAP MASK AGAIN AND THIS WAS PLACED BACK ON HER. PATIENT LASTED ABOUT 45 MINS ON VAPOTHERM AT 30L AND 30%. WILL CONTINUE TO MONITOR.
--- NOTE | 2023-07-29 18:08 | NUR ---
PATIENT WANTING TO USE COMMODE TO TRY AND HAVE A BM. HELPED PATIENT 1 PERSON ASSIST TO BSC. PT TOLERATED WELL. ONLY A SMEAR OF A BM NOTED. PT NOW BACK TO BED BUT WANTING TO SIT ON SIDE OF BED. TRAY TABLE PROVIDED IN FRONT WITH PILLOW, AND PATIENT IS SITTING ACROSS FROM HER DAUGHTER. PT STILL HAVING PRODUCTIVE SOUNDING COUGH BUT NOT ALWAYS ABLE TO EXPECTORATE. PT ON VAPOTHERM 30L 30% FOR ALL OF THIS ACTIVITY. INSTRUCTED PATIENT TO CALL THIS RN WHEN READY TO GET BACK TO BED TO REST.
--- NOTE | 2023-07-29 19:47 | NUR ---
REPORT RECEIVED FROM MICHELE CANTRELL. PT IN BED, WEARING BIPAP. RT IN ROOM TO DO WILFRID IRVING.
--- NOTE | 2023-07-29 21:48 | NUR ---
DR HENDERSON ROUNDING ON PTS, UPDATED ON PT STATUS, WILL GIVE 500ML BOLUS NS.
--- NOTE | 2023-07-29 22:50 | NUR ---
PT HAS BEEN RESTFUL ON BIPAP, SPO2 100%. HR 90-100'S AFIB.
--- NOTE | 2023-07-29 23:45 | NUR ---
PT HAS BEEN RESTING, WEARING BIPAP FOR THE LAST COUPLE OF HOURS.
[2023-07-30] VITALS (24 sets, daily range): BP systolic 105–171; BP diastolic 78–108
--- NOTE | 2023-07-30 02:10 | NUR ---
PT REMOVED HER BIPAP MASK, RN IN TO HELP HER ADJUST IT, PT REPOSITIONED UP IN BED AND WAS SETTLED FOR A COUPLE OF MINUTES. SHE THEN STARTED TEARING MASK OFF AGAIN, STATING "I CANT BREATHE", PT REASSURED, PT VERY ANXIOUS, TRYING TO GET MASK OFF WELL CLIMB OUT OF BED. RT CALLED, PT SWITCHED OVER TO VAPOTHERM. PT WAS ON VAPOTHERM APPROX 10 MINUTES, HER WORK OF BREATHING BECAME VERY LABORED, WITH LOTS OF ACC MUSCLE USE AND AUDIBLE WHEEZING. PT THEN INDICATED THAT SHE WANTED TO PUT THE BIPAP BACK ON SHE WAS FEELING TOO SHORT OF BREATH. DURING THIS TIME SATS REMAINED 99-100%. BIPAP WAS REPLACED. PT WAS STILL SOMEWHAT RESTLESS AND FIDGETING WITH BIPAP, 1 MG IV MORPHINE WAS GIVEN. DAUGHTER WAS AT BEDSIDE, ATTEMPTING TO CALM AND REASSURE MOTHER WELL. PT EVENTUALLY WAS ABLE TO RELAX AND LIE BACK WITH BIPAP ON. RESPIRATIONS STILL LOOKING QUITE LABORED AND RR UP TO 24 NOW.
--- NOTE | 2023-07-30 05:05 | NUR ---
LAB IN TO DRAW BLOOD, PT STAYS SLEEPING FOR THE MOST PART. HR 106, SPO2 100% RR 15 ON BIPAP.
[2023-07-30 05:24] LABS: ANION GAP 15.1 (7-21); BUN/CREATININE RATIO 43.05 (6.0-28.6); CALCIUM 9.2 mg/dL (8.5-10.1); CREATININE, SERUM 1.44 mg/dL (0.55-1.02); POTASSIUM 4.1 mmol/L (3.5-5.1)
[2023-07-30 05:53] LABS: BASOPHILS 0.2 % (0-2); EOSINOPHILS 0.1 % (0-6); HEMATOCRIT 34.9 % (35.0-50.0); HEMOGLOBIN 11.5 g/dL (12.0-18.0); LYMPHOCYTES 5.3 % (24-44); MCH 29.7 (27-36); MCHC 32.9 g/dl (30-36); MCV 90.1 fl (81-99); MONOCYTES 5.6 % (0-12); NEUTROPHILS 88.8 % (39-80); PLATELET COUNT 106 K/uL (140-440); RBC 3.87 M/ul (4.3-5.7); RDW 14.1 (10.5-15.0)
--- NOTE | 2023-07-30 06:53 | NUR ---
DR HENDERSON IN TO SEE PT, ASKS TO HAVE PT SWITCHED OVER FROM BIPAP-PT PLACED ON VAPOTHERM 30L, 30%. SPO2 REMAINS 100%, RR UP TO 18, MILD ACC MUSCLE USE SEEN, HR 100'S AFIB. PT OPENS EYES WITH ACTIVITY THEN BACK TO SLEEP QUICKLY.
[2023-07-30 08:03] LABS: BASE EXCESS, BLOOD GAS -4.3 mmol/L (-2-2); HCO3, BLOOD GAS 21.1 mmol/L (22-26); PCO2, BLOOD GAS 38.8 mmHg (35-45); PH, BLOOD GAS 7.34 (7.35-7.45); PO2, BLOOD GAS 123 mmHg (80-100); TOTAL CO2, BLOOD GAS 22.3
--- NOTE | 2023-07-30 08:04 | NUR ---
RT IN ROOM AND DRAWING ABG FROM LEFT WRIST. PT TOLERATED WELL. PT'S DAUGHTER ADAMS REMAINS IN ROOM WITH PATIENT AND IS TEARFUL THIS AM, AND STATES, "I JSUT HATE TO SEE MY MOM SUFFERING LIKE THIS." PATIENT IS ON VAPOTHERM AT 30L AND 30%. PATIENT HAS AUDIBLE EXP WHEEZING HEARD FROM ANYWHERE IN THE ROOM WITHOUT A STETHOSCOPE. SP02 IS 99-100%. HR CURRENTLY 110s, AFIB. RR 20 AND DOES SEEM LABORED, WITH ACCESSORY MUSCLE USE SEEN SUPRACLAVICULAR AND INTERCOSTAL. AM MEDS TO BE GIVEN.
[2023-07-30 08:06] LABS: O2 SATURATION, BLOOD GAS 99.9 % (95.0-100.0); OXYGEN RECEIVED, BLOOD GAS 30%
[2023-07-30] MEDS ORDERED: LORazepam 2 MG/ML VIAL IV ONE (08:45)
--- NOTE | 2023-07-30 09:56 | NUR ---
PATIENT RESTING AFTER ATIVAN WAS GIVEN. RR NOW 14-15, REMAINS ON VAPOTHERM AT 30L AND 30%. DR. HO IN UNIT TO SEE PATIENT PER DR. HENDERSON REQUEST. HR 100-110 AT THIS TIME.
--- NOTE | 2023-07-30 11:30 | NUR ---
THIS RN ROUNDING ON PT - PT RESTING WITH EYES CLOSED, RR 14 WITH MODERATE TO SEVERE WORK OF BREATHING NOTED. SA02 99% ON VAPOTHERM AT SAME SETTINGS. MD UPDATED FROM DR. HO ON CONVERSATION WITH FAMILY - DAUGHTER WENT HOME TO REST BEFORE MD COULD ROUND AGAIN.
--- NOTE | 2023-07-30 13:04 | NUR ---
DR. HENDERSON IN ROOM TO TALK WITH FAMILY AT THIS TIME.
[2023-07-30] MEDS ORDERED: LORazepam 2 MG/ML VIAL IV PRN (13:30)
--- NOTE | 2023-07-30 14:17 | NUR ---
DR. HENDERSON IN TO SEE PATIENT AND HER FAMILY, WHO HAVE BEEN VISITING PATIENT TODAY. PATIENT'S FAMILY WANTING TO LOOK AT POLST FORM THAT PATIENT HAS FILLED OUT, AND REQUESTING TIME TO REVIEW. AFTER REVIEWING POLST, FAMILY UPDATES THIS RN THAT NO CHANGES ARE TO BE MADE TO POLST, AND THEY WOULD LIKE TO CONTINUE TO COMPLY WITH HER PREVIOUSLY WRITTEN WISHES STATED ON POLST FORM. PATIENT GIVEN BED BATH AND LINEN CHANGED. PT TOLERATED WELL. PT REMAINS ON VAPOTHERM AT 30% AND 26L. SP02 HAS MAINTAINED IN THE HIGHER 90s. WHEN ASKING PATIENT HOW SHE IS FEELING, SHE STATES, "NOT GOOD" AND WHEN ASKING PATIENT IF HE IS EXPERIENCING SHORTNESS OF BREATH SHE STATES, "YES." ASKED PATIENT IF SHE WOULD LIKE TO WEAR BIPAP MASK AGAIN AND SHE STATES "YES", BUT ALSO PATIENT WAS UNAWARE THAT HER GRANDSON WAS IN THE ROOM. SHE THEN OPENS HER EYES MORE AND ACKNOWLEDGES THEM IN THE ROOM. PT PROVIDED WITH HER DENTURES AND IS NOW TRYING TO TALK WITH FAMILY, HOWEVER SHE REMAINS VERY TIRED AND EYES ARE MOSTLY CLOSED. WILL CONTINUE TO MONITOR.
--- NOTE | 2023-07-30 14:18 | NUR ---
PT REQUESTED TO GO BACK ON BIPAP AT THIS TIME. PLACED BACK ON AT FORMER SETTINGS
--- NOTE | 2023-07-30 16:18 | NUR ---
1600 ASSESSMENT COMPLETE. PATIENT TAKEN OFF BIPAP AND CURRENTLY ON ROOM AIR WITH SP02 OF 96%. PATIENT REPOSITIONED TO RIGHT SIDE. DR. HENDERSON COMES BACK IN CCU AND DISCUSSING WITH HIM PATIENT'S HIGHER BLOOD PRESSURES AND SLIGHTLY HIGHER HEART RATES. PER MD, RESTART DILT GTT. LAST BP 167/106.
--- NOTE | 2023-07-30 16:44 | NUR ---
PATIENT STARTED BACK ON DILT GTT AT 1630 AT 5 MG/HR.
--- NOTE | 2023-07-30 18:45 | NUR ---
PATIENT'S FAMILY IN ROOM VISITING WITH HER. PT STILL ON VAPOTHERM AT 30L AND 26%. UPDATE PROVIDED TO FAMILY. PT ON DILT GTT AT 15 MG/HR.
--- NOTE | 2023-07-30 19:30 | NUR ---
REPORT RECEIVED AND CARE ASSUMED FROM TAMIA BAUTISTA. PT DAUGHTER AND OTHER FAMILY AT BEDSIDE. VSS PER CONTINUOUS MONITOR.
--- NOTE | 2023-07-30 19:35 | NUR ---
POST HANDOFF REPORT INFUSION VERIFICATION - DILTIAZEM INFUSING AT 15 MG/HR TO PATENT R FA PIV. NS GTT INFUSING AT 100 ML/HR TO PATENT L HAND PIV.
--- NOTE | 2023-07-30 20:15 | NUR ---
DR HENDERSON IN UNIT TO CHECK ON PT. MD STATED TO GIVE PRN ATIVAN PER ORDER NOW FOR TACHYCARDIA. VERBAL ORDER REPEATED FOR VERIFICATION. MEDICATION GIVEN PER MD ORDER.
--- NOTE | 2023-07-30 20:30 | NUR ---
SHIFT ASSESSMENT COMPLETE. SEE MEDITECH. PT DROWSY, OPENS EYES TO NAME. PT DAUGHTER AT BEDSIDE. PT ACEVES PATENT, DRAINING CLEAR SAUL UO. PT PIV PATENT WITH NS GTT AND DILTIAZEM GTT INFUSING PER ORDERS. PT REPOSITIONED WITH PILLOW SUPPORT. BED IN LOW, LOCKED POSITION. PT FAMILY VERBALIZE UNDERSTANDING TO USE CALL LIGHT WITH NEEDS. VAPOTHERM IN PLACE WITH CURRENT O2 SAT 98%. VSS AND NAD NOTED VIA CONTINUOUS MONITOR AND DIRECT OBS.
--- NOTE | 2023-07-30 22:46 | NUR ---
DR HENDERSON NOTIFIED RE PT STATUS. PT CARDIZEM INCREASED TO 20 MG/HR. PT WORK OF BREATHING INCREASED. HR AND BP INCREASED. DR. HENDERSON EN ROUTE TO SEE PT.
--- NOTE | 2023-07-30 23:02 | NUR ---
DR HENDERSON STATES OK TO PLACE PT ON BIPAP. PT PLACED ON BIPAP. PT LETHARGIC FOLLOWING ATIVAN ADMINISTRATION. PT NOT ANSWERING QUESTIONS. PT ATTEMPTING TO PULL OFF BIPAP. DAUGHTERS AT BEDSIDE STATE THIS IS NORMAL BEHAVIOR DUE TO HER DEMENTIA.
--- NOTE | 2023-07-30 23:25 | NUR ---
DR HENDERSON IN ROOM FOR PT STATUS UPDATE. DR HENDERSON STATES TO CONTINUE DILTIAZEM GTT AT 20 MG/HR, ADD DIGOXIN 125 MCG IV Q DAY WITH FIRST DOSE NOW. DR HENDERSON ADJUSTED BIPAP SETTINGS TO 16/6 26%. PT CONTINUES TO PULL AT BIPAP. RR NOW 18, O2 SAT 100% ON BIPAP, HR 120-137 AFIB ON CARDIZEM GTT, BP 144/98 (110).
[2023-07-30] MEDS ORDERED: DIGOXIN 500 MCG/2 ML AMP IV SCH (23:30)
--- NOTE | 2023-07-30 23:56 | NUR ---
PT DAUGHTER CONCERNED FOR PT. DAUGHTER STATING "I'M TIRED OF SEEING MY MOTHER USED A GUINEA PIG". PT DAUGHTERS ASSURED THAT THE MEDICATIONS GIVEN WERE TO TREAT PT. PT STATES "YOU TELL ME WHAT YOU ARE GIVING HER BUT I DON'T UNDERSTAND". PT DAUGHTER REEDUCATED TO THE NAME AND PURPOSE OF EACH MEDICATION PT IS RECEIVING DURING HOSPITAL STAY. PT DAUGHTER FROM [facility] ARRIVED AT 11PM AND TRYING TO HELP EXPLAIN MEDICATIONS AND SITUATION TO [employer]IMARY NURSES' ASS[employer]ATION EXECUTIVE DIRECTOR DAUGHTER. PT FAMILY DENY FURTHER QUESTIONS AND NEEDS.
[2023-07-31] VITALS (37 sets, daily range): BP systolic 123–166; BP diastolic 61–128
--- NOTE | 2023-07-31 00:46 | NUR ---
SHIFT ASSESSMENT COMPLETE. SEE [facility] FOR DETAILS. PT RESTING ON BED WITH BIPAP IN PLACE. DAUGHTERS AT BEDSIDE. PT PIV PATENT, PT ACEVES PATENT AND DRAINING. BED IN LOW, LOCKED POSITION. VSS AND NAD NOTED VIA CONTINUOUS MONITOR AND DIRECT OBS.
--- NOTE | 2023-07-31 02:20 | NUR ---
PT RESTING IN BED WITH EYES CLOSED. PT OPENS EYES TO TOUCH. DAUGHTER ADAMS, PRIMARY TAX INVESTIGATOR, ROOMING IN. PT DAUGHTER WHO ARRIVED FROM [facility] LEFT HOSPITAL AND STATED SHE WOULD RETURN TOMORROW. PT WORK OF BREATHING APPEARS DECREASED FROM EARLIER IN SHIFT PRIOR TO PLACEMENT OF BIPAP ON PT. PT BED IN LOW, LOCKED POSITION WITH BED ALARM ON FOR PT SAFETY. VSS AND NAD NOTDE VIA CONTINUOUS MONITOR AND DIRECT OBS.
--- NOTE | 2023-07-31 04:15 | NUR ---
SHIFT ASSESSMENT COMPLETE. SEE MEDITECH. PT RESTING IN BED WITH EYES CLOSED. BIPAP IN PLACE. PT CONTINUES TO ATTEMPT TO REMOVE BIPAP INTERMITTENTLY. PT REORIENTED. PT DAUGHTER ADAMS RESTATES THIS IS NORMAL DEMENTIA BEHAVIOR FOR PT. PT PIV PATENT WITH DILTIAZEM GTT INFUSING AND NS MAINTENANCE FLUIDS INFUSING PER ORDERS. PT ACEVES PATENT WITH CLEAR ANBER UO. VSS AND NAD NOTED VIA DIRECT OBS AND CONTINUOUS MONITOR.
[2023-07-31 05:39] LABS: ANION GAP 17.6 (7-21); BUN/CREATININE RATIO 44.53 (6.0-28.6); CALCIUM 9.1 mg/dL (8.5-10.1); CREATININE, SERUM 1.19 mg/dL (0.55-1.02); POTASSIUM 3.6 mmol/L (3.5-5.1)
[2023-07-31 06:01] LABS: BASOPHILS 0.1 % (0-2); HEMATOCRIT 33.7 % (35.0-50.0); HEMOGLOBIN 11.3 g/dL (12.0-18.0); LYMPHOCYTES 2.6 % (24-44); MCH 30.2 (27-36); MCHC 33.5 g/dl (30-36); MCV 90.3 fl (81-99); MONOCYTES 4.7 % (0-12); NEUTROPHILS 92.6 % (39-80); PLATELET COUNT 95 K/uL (140-440); RBC 3.74 M/ul (4.3-5.7); RDW 14.3 (10.5-15.0)
--- NOTE | 2023-07-31 06:08 | CONS ---
[facility] [address], [place] [address] Signed DATE OF CONSULTATION: 07/30/2023 CHIEF COMPLAINT: Esophageal dysphagia. HISTORY OF PRESENT ILLNESS: Guera is an 88-year-old rather debilitated lady, who apparently had a type 2 achalasia in the past. She also is a heavy smoker and has significant COPD. Dr. Nur helped her with open Heller myotomy and heel repair in 2016. Since that time, she has required multiple dilations with Dr. Nur as well as with our Gastroenterology colleagues in [place], [place]. Her last dilation came in the fall with Dr. Donahue requiring dilation not only of her distal esophagus, but she had a stricture in the gastric antrum and the pylorus. Of course, her esophageal dysphagia has been an ongoing issue. However, more recently she has come into the hospital with shortness of breath and increased work of breathing and a cough. She was found to be RSV positive. There was some concern she could have pneumonia. She does have chronic thickening to her bronchi with chronic mucus per the radiologist. She was started on cefdinir and steroids, but ended up and has to be admitted to the ICU under medical service. She has been requiring ongoing care and support. I was asked to see her as a local general surgeon on-call to help with issues of the esophageal dysphagia. She did try a barium swallow which we tried to review and the report was rather minimal. She aspirated during the procedure and coughed up quite a bit of that. There was no mention of a dilated esophagus or the stricture distally. However, the CT scan of the chest, abdomen and pelvis shows the dilated esophagus with the narrowing in the distal esophagus along with some duodenitis in the 1st portion of the duodenum and then some body wall edema and of course her chronic lung issues. Fortunately, her daughter is with her today who happens to be her caregiver. Her had last fall of pulmonary issues. Consequently, her daughter is very familiar with this whole process. 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 PAST SURGICAL HISTORY: Includes the Heller myotomy and heel repair with Dr. Nur in 2016. She has had a cholecystectomy, hysterectomy, bilateral cataract surgery and retinal detachment repair along with multiple upper endoscopies and dilations. SOCIAL HISTORY: She used to smoke a pack and half a day. She does not drink. She was and now is a since last fall. She has two daughters. They live in the house in [place] Electronically Signed By: SEGUNDO HO MD 07/31/23 0608 PATIENT NAME: GUERA DARNELL CONSULTATION DATE OF : 39 REPORT #: [id number] PHYSICIAN: SEGUNDO HO MD PCP: HARJEET TORO REPORT IS CONFIDENTIAL AND NOT TO BE RELEASED WITHOUT AUTHORIZATION [address] [address] Signed [place], of course she no longer drives. Her oldest daughter Hilary is the caregiver and functions as the [id number], although that has not been established formally, her phone number is [phone]. Dr. Harjeet Spangler is her primary care provider at the [facility] in [place], [place]. FAMILY HISTORY: None. REVIEW OF SYSTEMS: We talked at length with Hilary as Guera was sound asleep after a small dose of Ativan. ALLERGIES: Phenergan, penicillins, and ibuprofen. MEDICATIONS: 1. Metoprolol. 2. Ipratropium. 3. Albuterol. 4. Atorvastatin. 5. Protonix. 6. Symbicort. 7. Tylenol. 8. Multivitamin. PHYSICAL EXAMINATION: VITAL SIGNS: Her blood pressure is 156/108, heart rate is 110, respiratory rate is 20, her temperature is 98.5. She is 100% on room air. She is 4 feet 11 inches at 58 kg and a body mass index of 26. GENERAL: Guera is an 88-year-old significantly disabled female, lying supine semi-recumbent in her ICU bed. She has oxygen per nasal cannula. She is a bit sedated with just 0.5 mg Ativan. Currently, she seems to be breathing fairly well. LABORATORY DATA: Her white blood cell count is 5.3, hemoglobin 11.4, neutrophils 88. BUN is up to 62, was 42. Creatinine was 1.57 on admission, it is now 1.44. ABG was unremarkable, the pH 7.34, pCO2 38, bicarb 21, O2 saturation 99% on O2 nasal cannula. Blood sugars are in 150s to 160s. The RSV was positive. RADIOGRAPHIC STUDIES: The barium swallow was not particularly helpful. She did aspirate during the procedure, although some of that contrast did make into the ileum and proximal right colon. The report was rather minimal. CT scan of the chest, abdomen, and pelvis shows the chronically thickened bronchi and some mucus. There is some inflammation to the 1st portion of the duodenum and some body wall edema. Electronically Signed By: SEGUNDO HO MD 07/31/23 0608 PATIENT NAME: GUERA DARNELL CONSULTATION DATE OF : 39 REPORT #: [id number] PHYSICIAN: SEGUNDO HO MD PCP: HARJEET TORO REPORT IS CONFIDENTIAL AND NOT TO BE RELEASED WITHOUT AUTHORIZATION [facility] [address], [place] [address] Signed ASSESSMENT AND PLAN: Guera is an 88-year-old rather significantly disabled female, who has this chronic issue of recurrent distal esophageal stricture after Heller myotomy and heel repair in 2015. It has required multiple dilations. I had a long protracted discussion with the daughter, Hilary. It has been agreed between Guera and the family that she is not a surgical candidate obviously to repair that. At this point, feeding tube will not improve her life nor extend her life. Her main issue is really going to be respiratory. Guera has quite a bit of difficulty ahead of her. Hilary tells me that she and her mom would not want extended protracted care and they would choose comfort care rather than heroic measures. I explained to Hilary we have POLST forms here at the hospital and we are certainly happy to get down into the POLST form and we can go over that with her and the admitting service. Otherwise, there was not much I can add to her from a general surgical standpoint. MD REGINALD Shahid/LOGANL /[id number] cc: MD Dr. Harjeet Shahid Copies: SEGUNDO HO MD ~ Electronically Signed By: SEGUNDO HO MD 07/31/23 0608 PATIENT NAME: GUERA DARNELL CONSULTATION DATE OF : 39 REPORT #: [id number] PHYSICIAN: SEGUNDO HO MD PCP: HARJEET TORO REPORT IS CONFIDENTIAL AND NOT TO BE RELEASED WITHOUT AUTHORIZATION
--- NOTE | 2023-07-31 06:46 | NUR ---
DR HENDERSON IN UNIT FOR PT STATUS UPDATE. GAVE VERBAL ORDER TO INCREASE DAILY DIGOXIN TO 250MCG PO. ORDER REPEATED, ENTERED INTO [employer]s AND READ BACK FOR CONFIRMATION. PT RESTING IN BED WITH BIPAP IN PLACE. YOLA AND JONATHAN'S PATENT. DAUGHTER RESTING AT BEDSIDE. VSS AND NAD NOTED VIA DIRECT OBS AND CONTINUOUS MONITOR.
--- NOTE | 2023-07-31 07:00 | NUR ---
DR CUEVAS IS AT BEDSIDE SPEAKING WITH PT DAUGHTER ADAMS.
--- NOTE | 2023-07-31 07:15 | NUR ---
REPORT GIVEN AND CARE ENDORSED TO TAMIA BAUTISTA. PT DAUGHTER IN ROOM AT BEDSIDE. VSS AND NAD NOTED VIA CONTINUOUS MONITOR.
--- NOTE | 2023-07-31 07:52 | NUR ---
PATIENT RESTING ON BIPAP AT THIS TIME WITH SETTINGS OF 16/6 AND 26%. PATIENT'S DAUGHTER ADAMS REMAINS IN ROOM AND HAS STAYED EVERYNIGHT WITH PATIENT. PATIENT STILL ON DILT GTT AT 20 MG/HR AND NOW RECEIVING IV DAILY DIGOXIN. ACEVES DRAINING YELLOW URINE. LUNG SOUNDS CONTINUE TO HAVE EXP WHEEZING WITH SOME INSP WHEEZING HEARD IN UPPER LOBES THIS AM, AND LOTS OF UPPER AIRWAY WHEEZING NOISES HEARD WELL. SLIGHT EDEMA IN LOWER LEGS NOTED. NS REMAINS AT 100 ML/HR. WILL CONTINUE TO MONITOR.
[2023-07-31] MEDS ORDERED: DIGOXIN 500 MCG/2 ML AMP IV SCH (09:00)
[2023-07-31] MEDS ORDERED: SODIUM CHLORIDE 0.9% INH ONE (09:15)
[2023-07-31] MEDS ORDERED: EPINEPHRINE 2.25% 0.5 ML AMP NEB ONE (09:15)
--- NOTE | 2023-07-31 09:46 | NUR ---
IN TO PATIENT ROOM. MICHELE RN AND COREY RT AT THE BEDSIDE PROVIDING CARES. PATIENT DAUGHTER ADAMS AND GRANDDAUGHTER AT THE BEDSIDE. DISCUSS PATIENT ONGOING PROGRESS, NEED FOR NUTRITION, SYMPTOM MANAGEMENT AND CURRENT POLST FORM. ADVISED THAT CASE MANAGEMENT AND STAFF WOULD LIKE TO HAVE A CARE MEETING WITH FAMILY WHEN AVAILABLE SPECIFICALLY TO DISCUSS FEEDING MEASURES AT THIS TIME. ADAMS STATES THAT HER SISTER ROSELYN SHOULD BE IN TO VISIT AT SOME TIME TODAY. ADVISED FAMILY AND STAFF TO CONTACT CASE MANAGEMENT WHEN READY. PATIENT DAUGHTER STATES THEY HAVE RECENTLY MOVED TO [place] FROM [place]. PATIENT HAS BEEN LIVING WITH [place] AND DOING WELL PRIOR TO THIS ACUTE VISIT. PATIENT DOES USE A WALKER TO AMBULATE.
--- NOTE | 2023-07-31 10:00 | NUR ---
PATIENT TAKEN OFF BIPAP AROUND 0830 AND PLACED ON VAPOTHERM. AROUND 0845, PATIENT STRUGGLING MORE WITH INCREASED WORK OF BREATHING. RT COMES TO BEDSIDE AND PER VERBAL ORDER FROM DOMINGO WU TO TRY RACEMIC EPI DOSE NEB. THIS WAS GIVEN PER RT. PATIENT ALSO NOW RECEIVING COOL AIR MIST THROUGH NEB MASK, AND REMAINS ON VAPOTHERM. HR IS ELEVATED, AND WAS BEFORE THE RACEMIC EPI DOSE WAS GIVEN. IT WAS NOTED THAT THERE WERE SLIGHTLY LESS WHEEZES HEARD AFTER THE RACEMIC EPI DOSE WAS GIVEN. VAPOTHERM IS NOW AT 40L AND 40%. NOTABLY, SP02 IS STILL IN THE UPPER 90s. PT'S DAUGHTER AND GRANDCHILDREN ARE IN ROOM. KO FROM CASE MANAGEMENT IN ROOM TO DISCUSS BRIEFLY AND STATES SHE WILL RETURN MORE FAMILY ARRIVES TO FURTHER DISCUSS GOALS OF CARE. IV IN RIGHT FOREARM INFILTRATED AND NEW IV PLACED IN RIGHT AC WHERE DILT GTT IS NOW INFUSING. PT WILL LIKELY NEED MORE STABLE IV PLACEMENT MOVING FORWARD. LOVENOX HELD THIS AM DUE TO PLATELETS DECREASING EACH DAY AND DR. HENDERSON NOTIFIED OF THIS. WILL CONTINUE TO MONITOR CLOSELY.
--- NOTE | 2023-07-31 10:39 | NUR ---
REFERRED BY DR. HENDERSON AND TAMIA BAUTISTA FOR END OF LIFE DISCUSSION. FAMILY STRUGGLING WITH DETERMINING PT WISHES AND ACCEPTABLE INTERVENTIONS. PROVIDED GEOTHERMAL INSTALLER EDUCATION; NORMALIZED EXPEREINCE; LISTENED EMPATHETICLALY; PROVIDED PRAYER QUILT; PROVIDED SUPPORTIVE PRESENCE; PROVIDED PRAYER. WILL FOLLOW UP NEEDED.
[2023-07-31] MEDS ORDERED: EPINEPHRINE 2.25% 0.5 ML AMP INH PRN (10:45)
--- NOTE | 2023-07-31 11:34 | NUR ---
PATIENT RESTING IN BED AT THIS TIME. REPOSITIONED TO LEFT SIDE AND POSITIONED WITH PILLOWS. PT REMAINS ON VAPOTHERM, CURRENTLY AT 40L AND 40% WITH COOL AIR MIST MASK WELL. DILT GTT REMAINS AT 20 MG/HR, IVF AT 100 ML/HR. RR CURRENTLY 16. FAMILY HAD LEFT FOR A WHILE BUT HAS NOW RETURNED TO THE ROOM. ACEVES DRAINING CLEAR YELLOW URINE.
--- NOTE | 2023-07-31 14:44 | NUR ---
PICC INSERTION NOTE: ASKED BY DR. HENDERSON TO EVALUATE PATIENT FOR POTENTIAL PICC LINE PLACEMENT. PATIENT HAS BEEN IN CCU FOR SEVERAL DAYS AND HAS BEEN NPO, AND IS NOW IN NEED OF A CENTRAL LINE TO MANAGE ALL MEDICATIONS WELL FOR TPN TO START. AFTER REVIEWING THE CHART, INTERVIEWING THE PATIENT AND THE FAMILY WHO IS PRESENT IN THE ROOM, NO ABSOLUTE CONTRAINDICATIONS WERE IDENTIFIED. PATIENT IS NOT ABLE TO SIGN THE CONSENT FORM HERSELF AT THIS TIME DUE TO WEAKNESS AND RESPIRATORY DISTRESS, BUT DOES GIVE HER VERBAL CONSENT. HER DAUGHTERS GITA AND ADAMS ARE ABLE TO SIGN THE CONSENT FORM AT THIS TIME FOR THEIR MOTHER. PATIENT'S RIGHT ARM IS EVALUATED FIRST USING THE SITE RITE U/S. VEINS IN THE RIGHT ARM WERE NOT FOUND TO BE SUITABLE NOR LARGE ENOUGH TO ACCOMODATE A 4FR CATHETER. THEREFORE THE LEFT ARM WAS THEN EVALUATED. THERE WAS A BASILIC VEIN, A COUPLE OF BRACHIAL, AND A CEPHALIC VEIN IDENTIFIED. BOTH THE BASILIC AND CEPHALIC VEINS WERE ON THE SMALLER SIDE, AND IT WAS ESTIMATED THAT A 4FR WOULD TAKE UP JUST RIGHT AT 45% OR GREATER OF THOSE VEIN DIAMETERS. PATIENT HAD A COUPLE OF BRACHIAL VEINS AND ONE WAS LOCATED THAT WAS FARTHER AWAY FROM THE BRACHIAL ARTERY, WITH A MEASUREMENT OF ONLY TAKING UP 37% OF VEIN DIAMTER USING A 4FR CATHETER. THIS WAS THE VEIN OF CHOICE. PT'S LEFT ARM WAS STERILY PREPPED AND DRAPPED FOLLOWING CDC RECOMMENDATIONS FO STERILE PROCEDURE. IV ACCESS WAS OBTAINED FAIRLY EASILY INTO VEIN WITH DARK, BRISK, NON PULSATILE BLOOD RETURNED. GUIDEWIRE THREADED INTO CATHETER AND INTO VEIN WITHOUT ANY RESISTANCE, FOLLOWED BY THE INTRODUCER, AND THEN THE PICC LINE. [facility] TECHONOLOGY WAS UTILIZED TO WATCH THE CATHETER TIP PROGRESS ACROSS THE CHEST. ONCE IN A SATISFACTORY POSITION, (PATIENT IN AFIB AND THEREFORE NO PEEKED P WAVES,) A STERILE DRESSING WAS PLACED AND A CHEST XRAY WAS TAKEN. PER CHEST XRAY, "LEFT APPROACH PICC LINE WITH THE CATHETER TIP LOCATED IN THE UPPER RIGHT ATRIUM. THIS IS ACCEPTABLE FOR USE." BOTH LUMENS OF PICC ARE FLUSHING WELL AND ASPIRATE BLOOD. EDUCATION MATERIAL LEFT INSIDE PATIENT'S CHART AND PATIENT ENCOURAGED TO ASK ANY QUESTIONS REGARDING PICC LINE AT ANY TIME.
[2023-07-31 15:20] LABS: ALBUMIN 3.3 g/dL (3.4-5.0); ALBUMIN/GLOBULIN RATIO 0.92 (1.1-2.4); ANION GAP 17.4 (7-21); BILIRUBIN, TOTAL 0.8 ng/dL (0.2-1.0); BUN/CREATININE RATIO 36.58 (6.0-28.6); CALCIUM 9.5 mg/dL (8.5-10.1); CHOLESTEROL/HDL RATIO 2.4; CREATININE, SERUM 1.23 mg/dL (0.55-1.02); POTASSIUM 3.4 mmol/L (3.5-5.1); PROTEIN, TOTAL 6.9 g/dL (6.4-8.2)
--- NOTE | 2023-07-31 15:36 | NUR ---
UR NOTE MCG ATRIAL FIBRILLATION (ISC) 07/28/23 VARIANCE GL DAY 2 07/31/23 VARIANCE GL DAY 2
[2023-07-31 15:55] LABS: INR 1.5 (0.80-1.30); PROTIME 17.7 Sec (11.2-14.2)
[2023-07-31 15:56] LABS: PARTIAL THROMBOPLASTIN TIME 24.6 Sec (22.9-41.3)
[2023-07-31] MEDS ORDERED: MULTIVITAMINS 10 ML,ZINC/COPPER/MANGANESE/SELENIUM 1 ML in AA 5% DEXT 20% WITH LYTES 2,... IV SCH (16:00)
[2023-07-31] MEDS ORDERED: FAT EMULSION 20% 500 ML IV SCH (16:00)
[2023-07-31 16:13] LABS: BASOPHILS 0.1 % (0-2); HEMATOCRIT 33.9 % (35.0-50.0); HEMOGLOBIN 11.2 g/dL (12.0-18.0); LYMPHOCYTES 2.3 % (24-44); MCH 29.8 (27-36); MCHC 33.1 g/dl (30-36); MCV 89.9 fl (81-99); MONOCYTES 4.6 % (0-12); PLATELET COUNT 102 K/uL (140-440); RBC 3.77 M/ul (4.3-5.7)
--- NOTE | 2023-07-31 16:33 | NUR ---
PATIENT RESTING AT THIS TIME WITH BIPAP ON, SETTINGS OF 16/6 AND 26. PT APPEARS COMFORTABLE AND RR IS 16. SP02 IS 100%. HREAT RATE IS STILL SLIGHLTY ELEVATED, CURRENTLY 110-115. TPN STARTED AT 1600 WITH LIPIDS WELL.
--- NOTE | 2023-07-31 16:44 | NUR ---
PATIENT NOTED TO BE SITTING UP IN BED. BIPAP MASK REMOVED AND VAPOTHERM PLACED ON 30L AND 30%. PATIENT'S [facility] REMAINS IN ROOM AT THIS TIME.
--- NOTE | 2023-07-31 17:19 | NUR ---
PATIENT RESTING IN BED, VAPOTHERM IN PLACE AND GRANDDAUGHTER AT BEDSIDE. PATIENT REPOSITIONED FOR COMFORT. ORAL CARE DONE AT THIS TIME.. CALL LIGHT IN EASY REACH
--- NOTE | 2023-07-31 17:29 | NUR ---
DR. HENDERSON CALLED AND UPDATED ON PT'S INCREASED WOB AND CRACKLES IN BASES, EDEMA IN LOWER LEGS. ONE TIME ORDER REC'D FOR 20 MG IV LASIX. PT ALSO MORE RESTLESS AT THIS TIME, TRYING TO THROW LEGS OVER THE SIDE OF BED AND NOTABLY EXP WHEEZING IS LOUDER AT THIS TIME. RR ALSO ELEVATED. RT CALLED FOR RACEMIC EPI TREATMENT. PT REMAINS ON VAPOTHERM AT 30L AND 30%. PRN MORPHINE ALSO AVAILABLE AND TO BE GIVEN.
[2023-07-31] MEDS ORDERED: FUROSEMIDE 20 MG/2 ML VIAL IV ONE (17:30)
--- NOTE | 2023-07-31 17:54 | NUR ---
PATIENT PLACED BACK ON BIPAP DUE TO INCREASED SHORTNESS OF BREATH. RR 25-27 AND LABORED, WITH ACCESSORY MUSCLE USE. PT STILL TRYING TO MOVE LEGS TO EDGE OF BED. HR NOT WELL CONTROLLED WITH RATES IN THE 130-150s. 20 MG IV LASIX HAS BEEN GIVEN.
--- NOTE | 2023-07-31 18:07 | NUR ---
PATIENT BACK TO LAYING DOWN AND REPOSITIONED IN BED. RR STILL 25 AT THIS TIME. HR 120-140s. WILL CONTINUE TO MONITOR CLOSELY.
--- NOTE | 2023-07-31 18:25 | NUR ---
PATIENT BACK ON BIPAP DUE TO INCREASED WORK OF BREATHING. PT STILL BREATHING 24-28. MORE DILUTE URINE NOTED IN ACEVES AFTER LASIX WAS GIVEN. GRANDCHILDREN HAVE LEFT FOR THE DAY BUT STATE THEY PLAN TO RETURN LATER. CONTINUE TO MONITOR.
[2023-07-31] MEDS ORDERED: METOPROLOL TARTRATE 5 MG/5 ML VIAL IV ONE (18:45)
[2023-07-31] MEDS ORDERED: POTASSIUM CHLORIDE 20 MEQ/100 ML BAG IV SCH (18:45)
--- NOTE | 2023-07-31 20:24 | NUR ---
ROUNDING IN PATIENT ROOM, THIS RN GAVE UPDATES AND DISCUSSED CONITNUED CARE PLAN, NEW ORDERS PROVIDED. SEE CHART/EMAR.
[2023-07-31] MEDS ORDERED: MORPHINE SULFATE 4 MG/ML VIAL IV PRN (20:30)
--- NOTE | 2023-07-31 20:52 | NUR ---
PATIENT ADMINISTERED MORPHINE 1MG IV PRN AT FOR AIR HUNGER, PATIENT ALSO RESTLESS MORE WITH INCREASE WORK OF BREATHING.
--- NOTE | 2023-07-31 21:10 | NUR ---
Kyaw WANG ROUNDING IN PATIENT ROOM. PATIENT LESS RESTLESS NOW RESP RATE 16/MIN
--- NOTE | 2023-07-31 21:44 | NUR ---
PATIENT NOW ON HIGH FLOW VAPOTHERM 30/30, PATIENT IS TOLERATING WELL AT THIS TIME. RR 16/MIN.
--- NOTE | 2023-07-31 22:04 | NUR ---
AT NURSES STATION AT THIS TIME FOR UPDATE ON PATIENT AND BLOOD SUGAR RECHECK, NEW ORDERS TO MONITOR BLOOD SUGAR EVERY TWO HOURS UNITL BETTER CONTROL. ALSO SHOWED TPN ORDERS THAT INDICATES INSULIN WAS NOT ADDED TO TPN.
[2023-07-31] MEDS ORDERED: INSULIN LISPRO 100 UNIT/ML ML SUB-Q ONE (22:15)
--- NOTE | 2023-07-31 22:34 | NUR ---
PATIENT PLACED ON BIPAP BY R.T. FOR WORK OF BREATHING, PATIENT PULLING MASK OFF, NOT ABLE TO REDIRECT, PATIENT PLACED BACK TO VAPOTHERMA, R.TFelipa CARVAJALY CALLED.
--- NOTE | 2023-07-31 22:51 | NUR ---
[address] HENDERSON TO SEEK PULMONOLGY CONSULT FOR POSSIBLE TRANSFER. 2114 CALL TO [facility] TRANSFER [facility] SPOKE WITH BRIGETTE, PER BRIGETTE ARCOS FULL AND WILL CHECK WITH [facility]. 2118 CALL TO [facility] TRANSFER [facility] SPOKE WITH OBEY, PER OBEY NO AVAILABILITY AT [facility] OR [facility]. 2219 CALL TO [facility]SF[facility] SPOKE WITH AUNDREA. AUNDREA CALLS BACK @ 2231 WITH BOX BENDER TO TALK TO DR HENDERSON.
--- NOTE | 2023-07-31 22:55 | NUR ---
AT NURSES STATION AFTER CONSULTING WITH DRIVER MEDIC, UPDATED NURSES ON PLAN OF CARE FOR BLOOD SUGAR AND VAPOTHERM AND BIPAP. Kyaw WANG ALSO AT NURSES STATION LISTENING AND UPDATED SETTINGS FOR VAPOTHERM AND BIPAP FOR REST OF BREATHING.
[2023-08-01] VITALS (28 sets, daily range): BP systolic 120–157; BP diastolic 52–106
[2023-08-01] MEDS ORDERED: METOPROLOL TARTRATE 5 MG/5 ML VIAL IV SCH
[2023-08-01] MEDS ORDERED: INSULIN LISPRO 100 UNIT/ML ML SUB-Q SCH
[2023-08-01] MEDS ORDERED: IBLOOD GLUCOSE TEST STRIP 1 EA TEST VI SCH
--- NOTE | 2023-08-01 00:49 | NUR ---
PATIENT RESTLESS, NOTED TO BE COUGHING, SHE IS TRYING TO PULL OFF THE BIPAP, THIS RN ASSIST TO REMOVE FOR HER TO COUGH, R.T. CALL TO REQUEST A NEBULIZER TO PERHAPS HELP MOBILIZE SECRECTIONS. KATHLEEN Card IN ROOM FOR PROVIDE ALBUTEROL NEB NOW.
--- NOTE | 2023-08-01 04:18 | NUR ---
IN ROOM FOR CBG, SS INSULIN ADMINISTERED. pt RESTING WITH EYES CLOSED, RR 22. pt DOES NOT OPEN EYES WITH NEEDLE STICK, OR ACCU CHECK. NO SHIFTING IN BED. APPEARS TO BE RESTING COMFORTABLY WITH BIPAP IN PLACE.
--- NOTE | 2023-08-01 04:39 | NUR ---
PATIENT RESTING IN BED RELAXED, ON BIPAP, TOLERATING WELL, 99-100% OXYGEN SATURATION. V/S STABLE. BLOOD SUGAR IS NOW TRENDING DOWN, HEART RATE IS CONTROLLED 80-100 BEATS PER MINUTE.
--- NOTE | 2023-08-01 05:19 | NUR ---
ABG DRAW COMPLETE BY Kyaw WANG AND WALKED TO LAB
[2023-08-01 05:41] LABS: ANION GAP 15.8 (7-21); BUN/CREATININE RATIO 34.69 (6.0-28.6); CALCIUM 9.4 mg/dL (8.5-10.1); CREATININE, SERUM 1.47 mg/dL (0.55-1.02); MAGNESIUM 1.9 mg/dL (1.8-2.4); PHOSPHORUS, INORGANIC 2.3 mg/dL (2.5-4.9); POTASSIUM 3.8 mmol/L (3.5-5.1)
[2023-08-01] MEDS ORDERED: POTASSIUM PHOSPHATE 30 MMOL in DEXTROSE 5% 500 ML IV ONE (07:15)
[2023-08-01 07:46] LABS: BASE EXCESS, BLOOD GAS -4.6 mmol/L (-2-2); HCO3, BLOOD GAS 20.8 mmol/L (22-26); PCO2, BLOOD GAS 38.5 mmHg (35-45); PH, BLOOD GAS 7.34 (7.35-7.45); PO2, BLOOD GAS 123 mmHg (80-100)
[2023-08-01 07:47] LABS: O2 SATURATION, BLOOD GAS 99.9 % (95.0-100.0); OXYGEN RECEIVED, BLOOD GAS 30 L
--- NOTE | 2023-08-01 08:00 | NUR ---
REPORT REC'D AND PLAN OF CARE RESUMES. PATIENT RESTING ON BIPAP WITH 14/6 25% AND TOLERATING WELL. PT'S DAUGHTER IN ROOM, LUIS ALBERTO. PT HAS WELL HR CONTROL, STILL AFIB, HR 80-90s MOSTLY. TPN CONTINUES AT 84 ML/HR. IV POTASSIUM PHOS STARTED. PT TO RECEIVE AM MEDICATIONS. EXP WHEEZING STILL HEARD THROUGHOUT LUNGS. SCDs WHILE PATIENT IS IN BED.
[2023-08-01] MEDS ORDERED: INSULIN GLARGINE-YFGN 100 UNIT/ML ML SUB-Q SCH (09:00)
--- NOTE | 2023-08-01 10:41 | NUR ---
AM MEDS GIVEN. PT TAKEN OFF BIPAP AND ASSESSMENT COMPLETED EARLIER THIS AM. PT PLACED ON VAPOTHERM 40L AND 25% WHEN NOT ON BIPAP FOR ASSISTANCE WITH WORK OF BREATHING. PT STILL MAINTAINING SP02 WELL. PICC LINE WORKING WELL. IV SITE IN LEFT HAND ALSO STILL WORKING AND BEING USED WHEN PATIENT HAS MULTIPLE IV MEDICATIONS. ACTIVE BOWEL SOUNDS REMAIN PRESENT. SKIN IS INTACT, NO SIGNS OF REDNESS OR BREAKDOWN NOTED WHEN PATIENT ROLLED TO SIDE TO SIDE. BACK WASHED, WELL WASH CLOTH PROVIDED FOR AM CARES. MOUTH MOISTENED WITH SPONGE. PT IS STILL HARD TO UNDERSTAND BUT DOES RESPOND TO YES/NO QUESTIONS. WILL CONTINUE TO MONITOR.
--- NOTE | 2023-08-01 11:34 | NUR ---
PATIENT TILTED TOWARDS LEFT SIDE AND POSITIONED WITH PILLOWS. PT REMAINS ON BIPAP WITH THE SAME SETTINGS, 14/6 AND 25%. HR HAS REMAINED WELL CONTROLLED, 80-90s.
--- NOTE | 2023-08-01 11:39 | NUR ---
ROUNDS. PT RECEIVING NURSING CARE. TAMIA BAUTISTA INDICATED PT MORE RESTFUL TODAY. FAMILY NOT PRESENT. PROVIDED PRAYER.
[2023-08-01 12:32] LABS: ANION GAP 11.1 (7-21); BUN/CREATININE RATIO 38.46 (6.0-28.6); CALCIUM 9.3 mg/dL (8.5-10.1); CREATININE, SERUM 1.3 mg/dL (0.55-1.02); POTASSIUM 4.1 mmol/L (3.5-5.1)
--- NOTE | 2023-08-01 13:48 | NUR ---
PATIENT TAKEN OFF BIPAP AND PLACED ON VAPOTHERM AT 40L AND 25%. PATIENT REMAINS DROWSY. DILT GTT TITRATED DOWN TO 12.5 MG/HR, HR STAYING IN THE 70-80s. WILL CONTINUE TO MONITOR.
--- NOTE | 2023-08-01 14:49 | NUR ---
PATIENT TAKEN OFF BIPAP AND NOW BACK ON VAPOTHERM. PRN RACEMIC EPI TREATMENT GIVEN PER RT FOR LOUD EXP UPPER AIRWAY WHEEZING. PT NOW ALSO RECEIVING COOL AIR MIST MASK. NEW IV PLACED IN RIGHT FOREARM AND LEFT HAND IV D/C. PT TOLERATED WELL. PT STILL FAIRLY DROWSY BUT DOES TRY TO SIT SELF UP IN BED. REPOSITIONED TO RIGHT SIDE. WILL CONTINUE TO MONITOR.
[2023-08-01] MEDS ORDERED: SELENIUM INSULIN REGULAR HUMAN IV SCH ×2 (16:00)
[2023-08-01] MEDS ORDERED: COPPER IV SCH ×2 (16:00)
[2023-08-01] MEDS ORDERED: MANGANESE IV SCH ×2 (16:00)
[2023-08-01] MEDS ORDERED: [UNRECOGNIZED DRUG - OTHER] IV SCH ×2 (16:00)
[2023-08-01] MEDS ORDERED: MULTIVITAMINS ZINC IV SCH ×2 (16:00)
--- NOTE | 2023-08-01 16:59 | NUR ---
PATIENT PLACED BACK ON BIPAP AT THIS TIME. PT REMAINS DROWSY BUT WHEN ASKED, "ARE YOU SHORT OF BREATH?" SHE DOES RESPOND WITH A "YES." PATIENT RR IS ELEVATED AT 25, SP02 WAS STILL 98% OFF THE BIPAP BUT INCREASED WORK OF BREATHING WAS EVIDENT.
--- NOTE | 2023-08-01 18:26 | NUR ---
PATIENT TAKEN OFF BIPAP DUE TO PULLING IT OFF. PATIENT NOW ON VAPOTHERM AT 40 L AND 25%. PATIENT MORE RESTLESS NOW. PT'S DAUGHTERS AND GRANDSON ARE NOW IN ROOM.
--- NOTE | 2023-08-01 18:42 | NUR ---
PATIENT'S RINGS WERE REMOVED AND GIVEN TO HER DAUGHTER ADAMS. PATIENT ALLOWED TO SIT AT EDGE OF BED FOR A LITTLE WHILE. LUNGS SOUNDS ARE SOUNDS LESS WHEEZY AT THIS TIME, STILL COARSE THROUGHOUT, BUT SIGNIFICANTLY LESS WHEEZING NOTED. PT REMAINS ON DILT GTT AT 15 MG/HR, TPN AT 84 ML/HR. PT'S TWO DAUGHTERS REMAIN IN ROOM AT THIS TIME. LAST CBG AT 1800 WAS UNDER 200 AND SS INSULIN WAS GIVEN.
--- NOTE | 2023-08-01 19:34 | NUR ---
RECEIVED REPORT FROM DAY SHIFT RN. PATIENT IS RESTING IN BED. FAMILY AT BEDSIDE. NO NEEDS NOTED. CALL LIGHT IN REACH. PATIENT IS ON VAPOTHERM AT THIS TIME.
--- NOTE | 2023-08-01 21:03 | NUR ---
PATIENT REPORSITIONED IN BED. PATIENT IS NOW IN HIGH FOWLERS POSITION. PATIENTS PM MEDS GIVEN PER ORDER. PATIENTS IV INFUSING PER ORDER. PATIENT REMAINS ON VAPOTHERM. RT IN ROOM TO ADMIN NEB. PATIENT ONLY ORIENTED TO SELF. PATIENT BRIEFLY OPENS EYES. ORAL CARE COMPLETED. ACEVES CARE COMPLETED. PATIENTS VITALS AND INTAKE AND OUTPUT RECORDED. SCDS IN PLACE. EDEMA NOTED IN BILAT LOW EXT. PATIENTS LOW EXT ELEVATED ON PILLOWS. PATIENT HAS GEN EDEMA IN HANDS. HANDS ELEVATED ON PILLOWS. PATIENTS DAUGHTER PRESENT AT T BEDSIDE AND DENIES ANY COMMENTS, QUESTIONS OR CONCERNS. PATIENT APPEARS COMFORTABLE AT THIS TIME. PATIENTS CALL LIGHT IN REACH.
--- NOTE | 2023-08-01 22:07 | NUR ---
PATIENT REPOSITIONED IN BED. PATIENT REMAINS ON VAPOTHERM. NO CHANGES TO VAPOTHERM. PATIENTS SCHEDULED MEDS GIVEN PER ORDER. PATIENT APPEARS TO BE RESTING COMFOTABLY. PATIENTS VITALS TAKEN AND RECORDED. INTAKE AND OUTPUT RECORDED. PATIENTS IV INFUSING PER ORDER. PATIENT HAS SCDS IN PLACE. RT IN ROOM AND NO CHANGES MADE TO VAPOTHERM. PATIENTS DAUGHTER ASLEEP ON COUCH.
--- NOTE | 2023-08-01 23:15 | NUR ---
PATIENT IS RESTLESS IN BED. PATIENT REPOSITIONED AND AIR MATTRESS PLACED UNDER PATIENT. PATIENT TOLERATED ACTIVITY WELL. PATIENTS VITALS TAKEN AND RECORDED. INTAKE AND OUTPUT RECORDED. PATIENTS DAUGHTER IS AT THE BEDSIDE. PATIENTS DAUGHTER DENIES ANY NEEDS. CALL LIGHT IN REACH.
--- NOTE | 2023-08-01 23:41 | NUR ---
PATIENT WITH INCREASED RR. FAST SHALLOW BREATHS NOTED. RT IN ROOM. NEB ADMIN BY RT PER ORDER
[2023-08-02] VITALS (37 sets, daily range): BP systolic 130–167; BP diastolic 50–107
--- NOTE | 2023-08-02 00:21 | NUR ---
PATIENT ASSESMENT COMPLETED. MEDS GIVEN PER ORDER. PATIENTS VITALS RECORDED. INTAKE AND OUTPUT RECORDED. PATIENT REPOSITIONED IN BED. SCDS IN USE. ORAL CARE COMPLETED. PATIENT TOLERATED ACTIVITY WELL. PATIENTS IV INFUSING PER ORDER. PATIENTS DAUGHTER ASLEEP ON COUCH. NO DISTRESS NOTED. PATIENT APPEARS COMFORTABLE.
--- NOTE | 2023-08-02 00:57 | NUR ---
PATIENT NOTED TO HAVE INCREASED RR. PATIENT PLACED ON BIPAP. RT IN ROOM. PATIENT APPEARS TO BE RESTING COMFORTABLY.
--- NOTE | 2023-08-02 02:07 | NUR ---
PATIENTS VITALS RECORDED. INTAKE AND OUTPUT RECORDED. PATIENT REPOSITIONED IN BED. PATIENTS SCHEDULED MEDS GIVEN PER ORDER. PATIENTS IV INFUSING PER ORDER. PATIENT REMAINS ON BIPAP. PATIENTS DAUGHTER ASLEEP ON COUCH. CALL LIGHT IN REACH.
[2023-08-02] MEDS ORDERED: FUROSEMIDE 20 MG/2 ML VIAL IV STA (03:21)
[2023-08-02] MEDS ORDERED: FUROSEMIDE 20 MG/2 ML VIAL ONE (03:22)
--- NOTE | 2023-08-02 03:26 | NUR ---
PATIENT HAD NOTED DECREASED OXYGEN TO 20. BIPAP OXYGEN INCREASED TO 100%. RT IN ROOM TO EVAL PATEINT. PATIENT HAS NOTED CRACKLES THROUGHOUT. PLACED CALL TO MD. ONE TIME ORDER FOR IV LASIX RECEIVED. IV LASIX GIVEN PER ORDER. PATIENT RMEAINS ON BIPAP. THIS RN AND RT REMAINS AT BEDSIDE.
--- NOTE | 2023-08-02 03:32 | NUR ---
DR HENDERSON NOTIFIED OF PT RHYTHM CHANGES. STAT LABS ORDERED. RT AND PRIMARY RN IN PT ROOM.
--- NOTE | 2023-08-02 03:34 | NUR ---
LABS DRAWN FROM PICC PER PROTOCOL AND SENT TO LAB. IVS INFUSING PER ORDER.
--- NOTE | 2023-08-02 03:39 | NUR ---
MD AT BEDSIDE. VERBAL ORDER FOR ABG RECEIVED. RT AT BEDSIDE.
[2023-08-02 03:56] LABS: ANION GAP 8.8 (7-21); BUN/CREATININE RATIO 46.77 (6.0-28.6); CALCIUM 9.2 mg/dL (8.5-10.1); CREATININE, SERUM 1.24 mg/dL (0.55-1.02); MAGNESIUM 1.8 mg/dL (1.8-2.4); PHOSPHORUS, INORGANIC 4.3 mg/dL (2.5-4.9); POTASSIUM 4.8 mmol/L (3.5-5.1)
[2023-08-02 03:58] LABS: BASOPHILS 0.1 % (0-2); EOSINOPHILS 0.1 % (0-6); HEMATOCRIT 33.2 % (35.0-50.0); HEMOGLOBIN 11.5 g/dL (12.0-18.0); LYMPHOCYTES 1.7 % (24-44); MCH 34.4 (27-36); MCHC 34.6 g/dl (30-36); MCV 99.5 fl (81-99); MONOCYTES 3.3 % (0-12); NEUTROPHILS 94.8 % (39-80); PLATELET COUNT 100 K/uL (140-440); RBC 3.33 M/ul (4.3-5.7); RDW 14.2 (10.5-15.0)
--- NOTE | 2023-08-02 03:59 | NUR ---
ABG DRAWN FROM RIGHT WRIST. PT TOLERATED WELL. BANDAGED WITH GAUZE AND THEN BANDAID. BLOOD WALKED TO LAB BY KATHLEEN ORTIZ
[2023-08-02 04:00] LABS: BASE EXCESS, BLOOD GAS -3.3 mmol/L (-2-2); HCO3, BLOOD GAS 23.9 mmol/L (22-26); PCO2, BLOOD GAS 51.2 mmHg (35-45); PH, BLOOD GAS 7.28 (7.35-7.45); TOTAL CO2, BLOOD GAS 25.5
[2023-08-02 04:01] LABS: O2 SATURATION, BLOOD GAS 99.8 % (95.0-100.0)
--- NOTE | 2023-08-02 04:03 | NUR ---
CHEST XRAY COMPLETED
[2023-08-02] MEDS ORDERED: SODIUM BICARBONATE 50 MEQ/50 ML SYR IV SCH (04:15)
--- NOTE | 2023-08-02 04:24 | NUR ---
PATIENT GIVEN A ONE TIME DOSE OF BICARB PER ORDER-SEE EMAR. PATIENT IS RESTING IN BED. PATIENT APPEARS TO BE RESTING COMFORTBLY. PATIENT REMAINS ON BIPAP. MD REMAINS ON FLOOR. ALL LABS REVIEWED BY MD. PATIENTS DAUGHTER UPDATED ON PLAN OF CARE. ALL QUESTIONS ANSWERED.
[2023-08-02] MEDS ORDERED: MAGNESIUM SULFATE 1 GM in DEXTROSE 5% 100 ML IV ONE (04:45)
[2023-08-02] MEDS ORDERED: MAGNESIUM SULFATE 2 GM/50 ML BAG IV ONE (05:00)
--- NOTE | 2023-08-02 05:28 | NUR ---
RT AT BEDSIDE TO DRAW ABG. RT WALKED ABG TO LAB
[2023-08-02 05:31] LABS: HCO3, BLOOD GAS 25.9 mmol/L (22-26); O2 SATURATION, BLOOD GAS 99.7 % (95.0-100.0); PCO2, BLOOD GAS 41.6 mmHg (35-45); PH, BLOOD GAS 7.4 (7.35-7.45); TOTAL CO2, BLOOD GAS 27.2
--- NOTE | 2023-08-02 05:55 | NUR ---
MD ON FLOOR AND REVEIWED ABG RESULTS. NO NEW ORDERS AT THIS TIME. PATIENT IS RESTING IN BED WITH BIPAP IN PLACE, SETTINGS FOLLOWS 14/6 FIO2 25%. PATIENT APPEARS TO BE COMFORTABLE. PATIENT ASSEMSENT COMPLETED. PATIENTS DAUGHTER IS ASLEEP ON THE COUCH.
--- NOTE | 2023-08-02 07:15 | NUR ---
report from Adrianne fox, pt on bipap at this time, with daughter in room. resp 26, o2 100% setting 14/6 bipap and 25% oxygen.
--- NOTE | 2023-08-02 07:59 | NUR ---
Pt sleeping with RN in room. Per RN pt had an event last night and was close to being intubated. No change in CM plan at this time. Pt to remain in CCU.
--- NOTE | 2023-08-02 08:06 | NUR ---
rn and student rn tom in to assume care - introduced to [facility] larry mcfarland provided and discussed plan of care. iv lines checked with nitish rdz rn, and bipap settings verified. bs= 224, temp 97.6 axillary. call light in reach - pt with bipap on, very somulent, awakens to stimuli, continues to sleep through cares. rt in room.
[2023-08-02] MEDS ORDERED: INSULIN GLARGINE-YFGN 100 UNIT/ML ML SUB-Q SCH (09:00)
--- NOTE | 2023-08-02 09:15 | NUR ---
dr ashley here with pt, dtg and rn. no changes to plan.
--- NOTE | 2023-08-02 09:18 | NUR ---
rn called areli rt - no mucomyst started yet. and dr ashley asked about them. areli will confirm and order.
[2023-08-02 10:45] LABS: PREALBUMIN 18.7 mg/dL (20.0-40.0)
--- NOTE | 2023-08-02 11:00 | NUR ---
bed bath and linen change complete, all skin wnl intact, akers care done. pt moves around in bed, rom done with arms and legs, assisted pt to sit up in bed but she is not steady enough to hold her own posture. pt on vapotherm sating well. non verbal, does not open eyes or speak. call light in reach visible from rn station.
[2023-08-02] MEDS ORDERED: Acetylcysteine 800 MG/4 ML VIAL INH SCH (12:00)
[2023-08-02 12:08] LABS: BASE EXCESS, BLOOD GAS 1.8 mmol/L (-2-2); HCO3, BLOOD GAS 26.5 mmol/L (22-26); OXYGEN RECEIVED, BLOOD GAS 25%; PCO2, BLOOD GAS 40.5 mmHg (35-45); PH, BLOOD GAS 7.42 (7.35-7.45); PO2, BLOOD GAS 76 mmHg (80-100); TOTAL CO2, BLOOD GAS 27.7
--- NOTE | 2023-08-02 12:48 | NUR ---
pt somulent,n eyes closed. dtg bruna in room at side, call light in reach. lunch to dt. pt akers draining urine wnl.
--- NOTE | 2023-08-02 12:57 | NUR ---
pt sounds wet lung, audible sounds, lung ascultation noted wheezes and rhonchi. oral suction with yankaur produced a gaona color thick sputum, very difficult suction as tounge is large and prominent in the oral airway. pt is moving around in bed, eyes open after suction/stimuli - continues to be non verbal. call light in reach and visible to rn at desk.
--- NOTE | 2023-08-02 13:15 | NUR ---
MINI NEURO EXAM, PT NON VERBAL, EYES OPEN, DOES NOT FOLLOW COMMANDS. NOT ABLE TO ESTIMATOR MY HANDS WITH EITHER HAND, NOT ABLE TO MOVE ARMS OR LEGS PURPOSFULLY. PT DAUGHTER REPORTS THAT THIS IS NOT NORMAL, PT BASELINE IS WALKING AND TALKING USING A FWW FOR SUPPORT. CALL TO DR. HENDERSON - CT SCAN OF HEAD ORDERED AND PLACED - PLAN FOR 2:30 TODAY.
--- NOTE | 2023-08-02 13:59 | NUR ---
PT ATTEMPTING TO GET OUT OF BED. IN AT BEDSIDE TO HOLD HER HANDS FOR SOMETIME. PT CONTINUES TO TRY TO GET UP. MEDICATED WITH 0.5 MG IV ATIVAN. PT APPPEARS MORE COMFORTABLE.
--- NOTE | 2023-08-02 14:04 | NUR ---
ROUNDS. PT SLEEPING. MET WITH DAUGHTER PEG. DAUGHTER EXPRESSED SADNESS CONSISTENT WITH SITUATION. PROVIDED HOSPITALITY; EXPLORED HOPE; EXPLORED COPING MECHANISMS; PROVIDED PRAYER. DAUGHTER EXPRESSED EMOTIONS; PROCESS FEELINGS; EXPRESSED GRATITUDE.
--- NOTE | 2023-08-02 14:25 | NUR ---
pt resting calmly now after ativan, resp rate 17, hr 75. iv sites wnl, scds on, pt on right side. call light in reach - dtg at bedside.
--- NOTE | 2023-08-02 14:35 | NUR ---
bipap on, pt tollerating. dr ashley in unit - clarify no mantenince fluids while on tpn and lipids.
[2023-08-02] MEDS ORDERED: FAT EMULSION 20% 250 ML IV SCH (16:00)
--- NOTE | 2023-08-02 16:36 | NUR ---
DR MARTÍNEZ HERE TO SEE PT, SOMULENT, REMOVED BIPAP AND NOW ON HFNC AT 30l, 25%. SATS 100%, HR 89, RESP 12. NEW TUBING AND NEW FILTERS - USING PICC SITE FOR IV FLUIDS.
--- NOTE | 2023-08-02 19:00 | NUR ---
PT BECOMES AWAKE AND RESTLESS, REMOVES HER 02, PULLING AT PICC LINE, TROWS LEGS OVER BED TANGLED IN ACEVES CATH. CALL TO DR. MARTÍNEZ - AWARE THAT PT IS NON VERBAL, NON PURPOSFUL IN MOVEMENT, CONFUSED, COMBATIVE, AND AGITATED. NEW ORDERS FOR MS, STOP REGLAN, USE LEAST AMT OF MEDS POSSIBLE (HOLD ATIVAN) OK FOR REG NC KEEP SATS ABOVE 91%, LET DTG ADAMS AT BEDSIDE KNOW OF PLAN OF CARE, MS 1 MG GIVEN IV AND PT SETTLED. REPORT TO BENJAMIN RN AT BEDSIDE, REVIEW OF PUMPS, ACEVES AND I/O. PLANS CARE CONFRENCE TOMORROW. NURSE INFORMATICS EDUCATOR Maximiliano DALTON AWARE. CALL LIGHT IN REACH AND PT IS VISIBLE TO STAFF AT RN STATION, X RAY CONTROL EQUIPMENT REPAIRER AND RN.
--- NOTE | 2023-08-02 19:21 | NUR ---
RECEIVED REPORT FROM DAY SHIFT RN. PATIENT ATTEMPTED TO PULL PICC LINE. THIS RN AND STUDENT RN ABLE TO STOP PATIENT FROM PULLING PICC. PATIENTS PICC FLUSHES WELL AND HAS BLOOD RETURN ON BOTH LUMENS. PATIENT PLACED ON SOFT RESTARINTS PER MD ORDER. PATIENTS DAUGHTER IN RECLINER. PATIENT IS IN VIEW OF RN STATION.
--- NOTE | 2023-08-02 20:20 | NUR ---
in with RN to boost pt in bed, new akers stat-lock in place
--- NOTE | 2023-08-02 20:32 | NUR ---
RT IN RROM TO ADMIN NEB. ASSESMENT COMPLETED. VITALS TAKEN AND RECORDED. UINTAKE AND OUPTUT RECORDED. ACEVES CARE COMPLETED. PATIENTS RESTRAINTS RELEASED, SKIN ASSESED, ROM ASSESED AND RESTARINTS PLACED BACK ON PER ORDER. ORAL SUCTION COMPLETED BY RT. RT SUCTIONED THICK BROWN SPUTUM. PATIENT TOLERATED SUCTION WELL. PATIENT IS RESTING IN BED AND APPEARS COMFORTABLE. PASTORAL CARE AT BEDSIDE WITH PATIENTS DAUGHTER TO PROVIDED SUPPORT. ALL PATEINTS DAUGHTERS QUESTIONS ANSWERED. PASTORAL CARE REMAINS AT BEDSIDE.
--- NOTE | 2023-08-02 21:00 | NUR ---
ROSHNI GUPTA CALLED ME IN TO PRAY WITH FAMILY. STAFF INDICATED THAT DAUGHTER OF PT WAS HAIVNG A DIFFICFULT TIME AND WAS CRYING A LOT. PT WAS RESTLESS WHEN I CAME IN AND DAUGHTER WAS SITTING BY THW WINDOW. TALKED WITH PT DAUGHTER, PROVIDED PASTORAL CARE, PRAYED WITH PT AND DAUGHTER. DAUGHTER STATED SHE WAS STAYING WITH HER MOM LONG SHE WAS IN THE HOSPITAL. SUNTER STATED THAT SHE DIDNT WANT HER MOTEHR TO SUFFER ANYMORE. DAUGHTER THANKED ME FOR COMING TO PRAY WITH HER AND HER MOTHGER.
--- NOTE | 2023-08-02 21:39 | NUR ---
PATIENT HAS NOTED INCREASED RR AND WORK OF BREATHING. RT IN ROOM TO EVALUATE PATIENT. PATIENT PLACED ON BIPAP BY RT. PATIENTS RR NOW 23. PATIENT APPEARS COMFORTABLE. PATIENT REMAINS IN SOFT RESTRAINTS PER ORDER.
--- NOTE | 2023-08-02 22:14 | NUR ---
SCHEDULED MEDS GIVEN PER ORDER. PATIENTS VITALS RECORDED. INTAKE AND OUTPUT RECORDED. PATIENTS RESTRAINTS RELEASED, SKINN ASSESED, ROM ASSESED, CAP REFILL ASSESED, AND PULSES ASSED AND ARE ALL WNL. PATIENTS RESTRAINTS REAPPLIED. PATIENT CONTINUES TO WEAR BIPAP. DAUGHTER ASLEEP ON COUCH. PATIENT APPEARS TO BE COMFORTABLE. PATIENT IS IN VIEW OF THE RN STATION.
--- NOTE | 2023-08-02 23:38 | NUR ---
PATIENTS VITALS RECORDED. PATIENTS IV INFUSING PER ORDER. PATIENT IS RESTING IN BED AND CONTINUES TO WEAR BIPAP. PATIENT APPEARS COMFORTBALE. PATIENTS DAUGHTER IS ASLEEP ON THE COUCH. PATIENT IS IN VIEW OF THE RN STATION.
[2023-08-03] VITALS (33 sets, daily range): BP systolic 110–169; BP diastolic 48–131
--- NOTE | 2023-08-03 00:10 | NUR ---
PATIENTS VITALS RECORDED. INTAKE AND OUPUT RECORDED. PATIENT REPOSITIONED IN BED. PATIENTS SOFT RESTRAINTS REMOVED. SKIN, PULSES, CAP REFILL, AND ROM ASSESED AND ARE ALL WNL. PATIENT PLACED BACK IN SOFT RESTRAINTS. PATIENT CONTINUES TO WEAR BIPAP. PATIENTS SCHEDULED MEDS GIVEN PER ORDER. PATIENTS IV INFUSING PER ORDER. PATIENT APPEARS COMFORTABLE.
--- NOTE | 2023-08-03 00:55 | NUR ---
PATIENT IS RESTLESS IN BED. PATIENT IS KICKING HER LEGS. THIS RN AND TAR MAN IN ROOM. THIS RN ASKED PATIENT ARE YOU OK. PATIENT SHOOK HEAD NO. PATIENTS BIPAP REMOVED. ORAL CARE COMPLETED. THIS RN ASKED PATIENT IF SHE WAS HAVING PAIN. PATIENT SHOOK HEAD YES. DAUGHTER AT BEDSIDE AND TOLD PATIENT SHE LOVED HER. PATIENT THEN LEANED TOWARD DAUGHTER TO ATTEMPT TO HUG HER. PATIENT PLACED BACK IN BIPAP. PATIENT GIVEN PRN PAIN MEDICATION PER ORDER. PATIENT APPEARS TO BE COMFORTABLE AT THIS TIME. PATIENT CONTINUES IN SOFT RESTRAINTS PER ORDER. PATIENTS DAUGHTER DENIES ANY NEEDS. CALL LIGHT IN REACH. IV INFUSING PER ORDER.
--- NOTE | 2023-08-03 02:11 | NUR ---
PATIENTS VITALS RECORDED. INTAKE AND OUTPUT RECORDED. PATIENTS SOFT RESTRAINTS RELEASED. PATIENTS PULSES, SKIN, CAP REFILL, AND ROM NOTED TO BE IN WNL. PATIENT CONTINUES TO WEAR BIPAP. PATIENT APPEARS TO BE RESTING COMFORTABLY. PATIENTS DAUGHTER IS ASLEEP ON COUCH. IVS INFUSING PER ORDER.
--- NOTE | 2023-08-03 03:37 | NUR ---
PATIENTS VITALS RECORDED. PATIENTS dilTIAZem DRIP TITRATED DOWN PER ORDER. PATIENT IS RESTING IN BED. PATIENTS CONTINUES TO WEAR BIPAP. PATIENT APPEARS COMFORTABLE. PATIENTS DAUGHTER ASLEEP ON COUCH.
--- NOTE | 2023-08-03 03:49 | NUR ---
PATIENTS dilTIAZem DRIP TITRATED DOWN PER ORDER. PATIENT CONTINUES TO WEAR BIPAP. PATIENT APPEARS COMFORTABLE AND IN NO DISTRESS. IVS INFUSING PER ORDER PATIENTS DAUGHTER ASLEEP ON COUCH.
--- NOTE | 2023-08-03 04:07 | NUR ---
PATIENT ASSESMENT COMPLETED. PATIENTS SOFT RESTRAINTS RELEASED. PATIENTS SKIN, PULSES, CAP REFILL, AND ESAU ASSESES AND ARE ALL WNL. PATIENT PLACED BACK IN SOFT RESTRAINTS PER ORDER. PATIENTS VITALS RECORDED. PATIENTS PATIENTS dilTIAZem DRIP TITRATED DOWN PER ORDER AND IS NOW OFF. PATIENTS INTAKE AND OUTPUT RECORDED. PATIENTS IVS INFUSING PER ORDER. PATIENT REPOSITIONED. PATIENT CONTINUES TO WEAR BIPAP. PATIENT APPEARS COMFORTBALE. PATIENTS DAUGHTER IS ASLEEP ON THE COUCH.
--- NOTE | 2023-08-03 05:05 | NUR ---
PATIENTS BLOOD DRAWN FROM PICC LINE IN LUE PER PROTOCOL AND SENT TO LAB. PATIENT IS RESTING IN BED AND CONTINUES TO WEAR BIPAP. PATIENTS VITALS TAKEN AND RECORDED. INTAKE AND OUTPUT RECORDED.
[2023-08-03 05:20] LABS: ANION GAP 8.3 (7-21); BUN/CREATININE RATIO 54.8 (6.0-28.6); CREATININE, SERUM 1.04 mg/dL (0.55-1.02); MAGNESIUM 2.1 mg/dL (1.8-2.4); PHOSPHORUS, INORGANIC 3.4 mg/dL (2.5-4.9); POTASSIUM 4.3 mmol/L (3.5-5.1)
--- NOTE | 2023-08-03 05:35 | NUR ---
PATIENTS BEDDING CHANGED AND BED BATH COMPLETED. RT IN ROOM. PATIENT REMOVED FROM BIPAP. FACE WASHED AND ORAL CARE COMPLETED. PATIENT PLACED BACK ON BIPAP. PATIENTS VITALS RECORDED. INTAKE AND OUTPUT RECORDED. PATIENT REPOSITIONED IN BED. PATIENTS SOFT RESTARINTS REMOVED. PATIENTS SKIN, PULSES, CAP REFILL, AND ROM ASSESED AND ARE ALL WNL. PATIENT BEGAN ATTEMPTING TO ULL ON LINES AND BIPAP. PATIENT PLACED BACK IN SOFT RESTRAINTS PER ORDER. PATIENT PLACED BACK ON BIPAP BY RT. THIS RN ASKED PATIENT IF SHE WAS HAVING PAIN. PATIENT SHOOK HEAD YES. PRN PAIN MEDICATION GIVEN PER ORDER. PATIENT HAS SCDS IN PLACE. PATIENT APPEARS TO BE RESTING COMFORTABLY. PATIENT IN VIEW OF THE RN STATION. DAUGHTER ASLEEP ON THE COUCH.
--- NOTE | 2023-08-03 06:12 | NUR ---
PATIENTS VITALS RECORDED. INTANKE AND OUTPUT RECORDED. AM MEDS PER ORDER. PATIENT REMAINS ON BIPAP. PATIENT IS RESTING IN BED WITH EYES CLOSED, VITALS ARE WNL. PATIENTS DUGHTER IS AWAKE ON THE COUCH AND DENIES ANY NEEDS. IV INFUSING PER ORDER. SCDS IN PLACE.
--- NOTE | 2023-08-03 07:30 | NUR ---
report from gilmar fox at bedside with dr. rosado and pt ana mcfarland in room. pt has increased resp effort,breaths shallow, on bipap - removed bipap and washed pt face -attempted to wake pt for dr assessment. she breifely opens eyes, looks around closes eyes. pt not verbal, sometimes answers yes to every question no matter what you ask. no other words when asked open ended quesions. pt is not able to answer questions about orientation, pt is not able to squeeze hands, or follow commands. pt does look tward the window when asked to. iv tpn wnl to left arm. akers with darker urine quantity sufficient. pt skin wnl, and daughter denies questions at this time, storage battery charger ryan talked with and pt ana mcfarland and there will be a care meeting with both dauthers at 11 am after new am ekg, abg, labs, xray and meds given to evaluate pt status and discuss plan of care. Ana mcfarland agrees and calls her sister. Restraints removed while in room, rom performed, generalized edema noted in arms increasing, and LEEdema is +3 pitting. pt is moving legs around on own at times restless. restraints to bilateral arms replaced as pt continues to pull at PICC line and akers cath. call light in reach
--- NOTE | 2023-08-03 07:40 | NUR ---
rt in room for eval and ekg. this RN in to assist - pt restless and no change in mental status. not following comands. non compliant with holding still for ekg.
--- NOTE | 2023-08-03 07:41 | NUR ---
AT BEDSIDE. NEW ORDERS RECEIVED AT BEDSIDE. ORDERS VERIFIED USING THE REPEAT BACK METHOD. ORDERS PLACED. RT IN ROOM TO OBTAIN EKG AND ABG. IMAGING CALLED AND UPDATED ON NEW ORDER.
--- NOTE | 2023-08-03 07:45 | NUR ---
PATIENT RESTING IN BED, FACE AND HANDS WASHED. ROM WITH BOTH ARMS. DAUGHTER AT BEDSIDE, MEAL VOUCHERS GIVEN TO DAUGHTER
--- NOTE | 2023-08-03 07:50 | NUR ---
RN in room to assist with cxr. hob up and pt repositioned. bipap on. hr 88.
--- NOTE | 2023-08-03 07:55 | NUR ---
This rn deepika labs from PICC line left arm. per protocol, flush, wasted, draw and labs sent per order - flushes well with good blood return and then fluids resumed.
[2023-08-03] MEDS ORDERED: IBLOOD GLUCOSE TEST STRIP 1 EA TEST VI SCH (08:00)
[2023-08-03] MEDS ORDERED: INSULIN LISPRO 100 UNIT/ML ML IV SCH (08:00)
[2023-08-03] MEDS ORDERED: INSULIN LISPRO 100 UNIT/ML ML SUB-Q SCH (08:00)
[2023-08-03 08:05] LABS: BASE EXCESS, BLOOD GAS 0.9 mmol/L (-2-2); HCO3, BLOOD GAS 27.7 mmol/L (22-26); O2 SATURATION, BLOOD GAS 93.2 % (95.0-100.0); PCO2, BLOOD GAS 52.7 mmHg (35-45); PH, BLOOD GAS 7.33 (7.35-7.45); PO2, BLOOD GAS 67 mmHg (80-100); TOTAL CO2, BLOOD GAS 29.3
[2023-08-03 08:06] LABS: OXYGEN RECEIVED, BLOOD GAS RA
[2023-08-03 08:34] LABS: BASOPHILS 0.9 % (0-2); HEMATOCRIT 33.8 % (35.0-50.0); HEMOGLOBIN 11.2 g/dL (12.0-18.0); LYMPHOCYTES 1.3 % (24-44); MCH 30.2 (27-36); MCHC 33.2 g/dl (30-36); MCV 91.1 fl (81-99); MONOCYTES 3.5 % (0-12); NEUTROPHILS 94.3 % (39-80); PLATELET COUNT 85 K/uL (140-440); RBC 3.71 M/ul (4.3-5.7); RDW 13.6 (10.5-15.0)
[2023-08-03] MEDS ORDERED: INSULIN GLARGINE-YFGN 100 UNIT/ML ML SUB-Q SCH (09:00)
--- NOTE | 2023-08-03 10:21 | NUR ---
bs checked prn 174, both dtgs in room - they deny needs and offer for coffee etc. pt continues on bipap, hr 84, pt is somulent and no changes. call light in reach.
--- NOTE | 2023-08-03 11:00 | NUR ---
REMOVED PATIENT'S WRIST RESTRAINTS AND RAISED PATIENT'S HANDS OVER HER HEAD. PATIENT CONTINUES TO REST IN BED WITH BIPAP IN PLACE. SHE DOES NOT ROUSE WHEN HER ARMS ARE MOVED. PATIENT CONTINUES TO HAVE EDEMA TO HER BILATERAL UPPER EXTREMITIES WITH BRUISING TO HER LEFT UPPER ARM. DAUGHTERS GITA AND ADAMS AT BEDSIDE.
--- NOTE | 2023-08-03 12:15 | NUR ---
IN WAITING ROOM WITH BOTH SISTERS, CANDELARIA MONTEJO [facility], , DR PERSAUD LED DISCUSSION, QUESTIONS AND ANSWERS ABOUT OPTIONS AND FAMILY WISHES. MOVING FORWARD FAMILY WANTS PT TO BE DNR/DNI - NO AGGRESSIVE MEASURES, NO SURGICAL INTERVENTION. FAMILY WOULD LIKE PT TO GO TO HOSPICE CARE IN HOME WITH FAMILY GOAL. WOOD ROOM SUPERVISOR DK WAS ALSO IN MEETING AND EXPLAINED HER ROLE IN ASSISTING AND SUPPORTING FAMILY AND PATIENT IN THIS NEXT STEP - THIS RN INCLUDED EDUCATION ON TRANSPORT OUT, AND SUPPLIES AND NEEDS OF PT AND FAMILY TRANSITIONING TO HOME. SUPPORT WAS GIVEN AND PRAISE TO SISTER ADAMS THE PT JOAQUIN WHO WAS PRIMARY CUSTOMER EXPERIENCE PROFESSIONAL AND PT LIVED WITH IN THE HOME LAST 5 YEAR. 12;30 RN IN TO PT ROOM AT THIS TIME, REPOSITIONED, RESTRAINTS REMOVED, AND RT IN AND PT ON ROOM AIR. DAUGHTERS AT BEDSIDE TO ASSIST IN FACIAL CARES.
--- NOTE | 2023-08-03 12:24 | NUR ---
ATTENDED CARE CONFERENCE TO CLARIFY GOALS OF CARE. PRESENT WERE TAMIA GUERIN, LANE ATTENDANT BRUCE, AND DR MASCORRO, DAUGHTER ADAMS AND DARUGHTER PEG. PROVIDED SUPPORTIVE PRESENCE DISCUSSED PATIENT CONDITION AND PROGNOSIS WITH DAUGTHERS. DAUGHTER PEG EXPRESSED GRATITUDE FOR CARE PROVIDED TO PT WELL CONCERN FOR FAMILY.
--- NOTE | 2023-08-03 12:52 | NUR ---
CARE MEETING WITH PATIENT'S DAUGHTER, Emma KENNEY RN, CANDELARIA MONTEJO, [facility], DR. PERSAUD. DISCUSSED PATIENT'S CONDITION AND PROGNOSIS. DAUGHTERS ARE IN AGREEANCE TO SET UP HOSPICE CARE FOR DC TO HOME. REQUEST LOCAL HOSPICE. CALLED AND SPOKE WITH [facility] AT [facility]. STATES THEY CAN ADMIT PATIENT EITHER TOMORROW OR MONDAY. CHART FAXED TO [facility]. PATIENT'S DAUGHTERS UPDATED.
--- NOTE | 2023-08-03 13:14 | NUR ---
DAUGHTERS STATE THEY WILL NOT BE ABLE TO TAKE PATIENT HOME UNTIL A HOSPITAL BED IS AVAILABLE. STATE THEY PLAN TO TAKE HER TO [place] TO HER HOME.
--- NOTE | 2023-08-03 13:30 | NUR ---
PT ON ROOM AIR, RESP EVEN - REPOSITIONED, ACEVES DRAINING SAUL URINE. CALL LIGHT IN REACH SATS 97%.
--- NOTE | 2023-08-03 14:08 | NUR ---
GAVE PATIENT A BED BATH, PROVIDED CATHETER CARE AND ORAL CARE. PATIENT IS AWAKE AT THIS TIME. SHE FREQUENTLY ATTEMPTS TO SIT UP AND MOVE HER LEGS OUT OF BED. PATIENT DOES NOT RESPOND TO QUESTIONS AND DOES NOT SPEAK.
--- NOTE | 2023-08-03 14:35 | NUR ---
BOOSTED PATIENT IN BED. SHE STILL ATTEMPTS TO SIT UP AND MOVE HER LEGS OUT OF BED FREQUENTLY. SHE OPENS HER EYES BUT DOES NOT FOLLOW COMMANDS OR RESPOND TO QUESTIONS.
[2023-08-03] MEDS ORDERED: ARTIFICIAL TEARS 15 ML BTL OU PRN (14:45)
[2023-08-03] MEDS ORDERED: ondansetron HCL 4 MG/2 ML VIAL IV PRN (14:45)
[2023-08-03] MEDS ORDERED: MORPHINE SULFATE 10 MG/ML VIAL IV PRN (14:45)
[2023-08-03] MEDS ORDERED: ATROPINE SULFATE 1% OPTH DROPS SL PRN (14:45)
[2023-08-03] MEDS ORDERED: MORPHINE SULFATE 4 MG/ML VIAL IV PRN ×2 (14:45)
[2023-08-03] MEDS ORDERED: LORazepam 2 MG/ML VIAL IV PRN (14:45)
[2023-08-03] MEDS ORDERED: PROCHLORPERAZINE MALEATE 10 MG TAB PO PRN (14:45)
[2023-08-03] MEDS ORDERED: fentaNYL citrate 100 MCG/2 ML VIAL IV PRN (14:45)
[2023-08-03] MEDS ORDERED: HALOPERIDOL LACTATE 5 MG/ML VIAL IV PRN (14:45)
[2023-08-03] MEDS ORDERED: SCOPOLAMINE 1 MG/3 DAYS PATCH 1 EACH TDSY TD SCH (15:00)
--- NOTE | 2023-08-03 15:33 | NUR ---
ORAL SUCTION OF THICK SECRETIONS, NO GAG REFLEX WITH THE YANKAUR SX. ATROPINE GIVEN FOR AUDIBLE GURGLES AND WET SOUNDS, PT DTG ADAMS IN ROOM, CALL LIGHT IN REACH. ACEVES EMPTIED FOR 300 ML OF SAUL URINE. PT SOMEWHAT RESTLESS WITH CARES, ATIVAN, MS, AND ZOFRAN GIVEN WELL SCOPE PATCH. PT REPOSITIONED TO RIGHT SIDE. DTG DENIES NEEDS AT THIS TIME. RESP RATE 20 AND REGULAR. PT ON ROOM AIR. EYES CLOSED, SOMULENT.
--- NOTE | 2023-08-03 16:00 | NUR ---
PT SOMULENT, NO LONGER NEEDING RESTRAINTS, D/C. DAUGHTER IN ROOM SHE DENIES NEEDS, PT GIVEN MEDS FOR COMFORT SEE EMAR. STAFF IN ROOM FOR REPOSITIONING. VISIBLE FROM RN STATION.
--- NOTE | 2023-08-03 16:42 | NUR ---
TPN INFUSION COMPLETED. PICC LINE SALINE LOCKED WITH ALCOHOL CAPS IN PLACE. GM WRAP REMOVED FROM AROUND PICC LINE IT IS NO LONGER NEEDED. PATIENT IS RESTING IN BED. BREATHING IS LABORED WITH NOTICEABLE BELLY BREATHING AND A RATTLE WITH EXHALES. CALL LIGHT WITHIN REACH.
--- NOTE | 2023-08-03 17:05 | NUR ---
PT APEARS TO HAVE INCREASE WORK OF BREATHING, AND SEEMS UNCOMFORTABLE - MEDS GIVEN FOR COMFORT SEE EMAR - RN AND STAFF REPOSITION PT WITH PILLOWS AND QUILT FOR COMFORT, PT ON ROOM AIR AND ACEVES DRAINING, SATS 70%, FAMILY HAS GONE HOME AND STATED THEY WERE NOT PLANNING ON COMING BACK - AWARE OF PT STATUS AT THIS TIME. RN STUDENT NURSE SUJIT SITTING AT BEDSIDE WITH PT AND HOLDING HAND TO COMFORT PT.
--- NOTE | 2023-08-03 17:29 | NUR ---
PATIENT REPOSITIONED FOR COMFORT, FRESH LINEN ON BED. ORAL CARE PROVIDED, FACE WASHED.
--- NOTE | 2023-08-03 17:46 | NUR ---
THIS RN AT PT BEDSIDE FOR COMFORT - PT IS AGONAL BREATHING, REPOSITIONED FOR COMFORT.
--- NOTE | 2023-08-03 19:11 | NUR ---
RN IN WITH PT RESP RATE 14, RESTING ON R SIDE, RESP IRREGULAR, POOR URINE OUTPUT TO ACEVES. HR 93, SATS ON ROOM AIR 74%,
--- NOTE | 2023-08-03 19:45 | NUR ---
SHIFT REPORT RECEIVED. PATIENT RESTING WITH EYES CLOSED. BREATHING NONLABORED. PATIENT APPEARS COMFORTABLE. NO FAMILY IN ROOM.
--- NOTE | 2023-08-03 20:30 | NUR ---
PATIENT APPEARS COMFORTABLE. BREATHING EVEN AND NONLABORED; RR 10 BPM.
--- NOTE | 2023-08-03 21:35 | NUR ---
PATIENT NOTED VIA SUPERINTENDENT SERVICE TO BE IN ASYSTOLE. VERIIFED VIA PULSE CHECK AND LISTENING FOR APICAL PULSE. PATIENT NOT BREATHING. REPORTED TO AND BODY SERVICE TEAM MEMBER. PATIENT'S NEXT OF KIN NOTIFIED; FAMILY WAS CURRENTLY ON THEIR WAY INTO SEE PATIENT AND WILL CONTINUE TO COME SEE HER. BODY SERVICE [facility]AM MEM[facility]
--- NOTE | 2023-08-03 22:38 | NUR ---
PATIENT'S FAMILY LEAVING AT THIS TIME. PATIENT'S CPAP TAKEN BY FAMILY.
--- NOTE | 2023-08-03 22:47 | NUR ---
ARRIVED AT APPX 10:00PM AFTER RECEIVING CALL OF PATIENT MET WITH FAMILY, ASKED AND HAD PRAYER WITH TWO DAUGHTERS OF THE . NOT CANDIDATE FOR DONOR LINE, SO AFTER AFTER FAMILY AND HOUSE SUP GAVE OKAY, CALLED [facility], AT 10:16PM. HOME ARRIVED AT 10:49PM. BODY RELEASE FORM SIGNED AT 10:54PM PATIENT BELONGINGS RELEASED TO FAMILY
--- NOTE | 2023-08-03 23:05 | NUR ---
2240 IN TO PRONOUNCE PATIENT 2250 FUNNER[facility] HOME ARRIVED ALL BELONINGS SENT WITH PATIENT'S FAMILY.
--- NOTE | 2023-08-05 11:56 | EKG ---
[facility] [address] [facility] [facility] [place] [address] Signed Atrial fibrillation Low voltage QRS Nonspecific ST and T wave abnormality Abnormal ECG When compared with ECG of 26-JUL-2023 11:11, Vent. rate has decreased BY 48 BPM QRS axis shifted right Nonspecific T wave abnormality now evident in Inferior leads Nonspecific T wave abnormality, worse in Lateral leads Confirmed by Ever Persaud MD ([id number]) on 08/05/2023 11:56:03 AM Electronically Signed By: EVER PERSAUD 08/05/23 1156 PATIENT NAME: CONNIE DARNELL Electrocardiogram DATE OF : 39 PHYSICIAN: EVER PERSAUD REPORT #: [id number] REPORT IS CONFIDENTIAL AND NOT TO BE RELEASED WITHOUT AUTHORIZATION
== END 2023-08-03 23:00 | DRG 308 ==
LOC: ED 11:02 → CCU 16:51
PROVIDERS: Emergency Medicine; Internal Medicine; ADMIT Family Medicine; ATTEND Family Medicine
PROC: 5A09357 Assistance with Respiratory Ventilation, Less than 24 Consecutive Hours, Continuous Positive Airway Pressure (ICD-10-PCS; 2023-07-26)
PROC: 4A133R1 Monitoring of Arterial Saturation, Peripheral, Percutaneous Approach (ICD-10-PCS; principal; 2023-07-30)
PROC: 02H633Z Insertion of Infusion Device into Right Atrium, Percutaneous Approach (ICD-10-PCS; 2023-07-31)
PROC: 3E0436Z Introduction of Nutritional Substance into Central Vein, Percutaneous Approach (ICD-10-PCS; 2023-07-31)
PROC: 0DH67UZ Insertion of Feeding Device into Stomach, Via Natural or Artificial Opening (ICD-10-PCS; 2023-07-31)
PROC: 3E043XZ Introduction of Vasopressor into Central Vein, Percutaneous Approach (ICD-10-PCS; 2023-07-31)
DX: I48.91 Unspecified atrial fibrillation (principal); J96.01 Acute respiratory failure with hypoxia; J44.1 Chronic obstructive pulmonary disease with (acute) exacerbation; G93.49 Other encephalopathy; N17.9 Acute kidney failure, unspecified; F05 Delirium due to known physiological condition; Z51.5 Encounter for palliative care; Z66 Do not resuscitate; I50.9 Heart failure, unspecified; F03.90 Unspecified dementia, unspecified severity, without behavioral disturbance, psychotic disturbance, mood disturbance, and anxiety; K22.0 Achalasia of cardia; B97.4 Respiratory syncytial virus as the cause of diseases classified elsewhere; E11.9 Type 2 diabetes mellitus without complications; G47.33 Obstructive sleep apnea (adult) (pediatric); K21.9 Gastro-esophageal reflux disease without esophagitis; R13.12 Dysphagia, oropharyngeal phase; E66.9 Obesity, unspecified; E78.5 Hyperlipidemia, unspecified; I11.0 Hypertensive heart disease with heart failure; Z87.891 Personal history of nicotine dependence; Z98.890 Other specified postprocedural states; Z90.710 Acquired absence of both cervix and uterus; Z98.42 Cataract extraction status, left eye; Z98.41 Cataract extraction status, right eye; Z88.0 Allergy status to penicillin; Z88.8 Allergy status to other drugs, medicaments and biological substances; Z79.899 Other long term (current) drug therapy; Z90.49 Acquired absence of other specified parts of digestive tract; Z79.51 Long term (current) use of inhaled steroids; Z79.2 Long term (current) use of antibiotics; Z68.27 Body mass index [BMI] 27.0-27.9, adult
CPT/HCPCS: 36415; 36569; 36600; 70450; 71045; 71250; 74176; 74230; 80048; 80053; 80061; 82803; 83735; 83880; 84100; 84134; 84484; 85025; 85060; 85610; 85730; 86140; 92611; 93005; 93010; 93306; 94640; 94660; 94667; 94760; 94799; 96374; 96375; 96376; 99285-25; A9270; C1751; J0696; J1160; J1630; J1650; J1815; J1940; J2060; J2270; J2405; J2765; J2920; J2930; J3475; J3480; J3490; J7030; J7060; J7512